=== PATIENT | male | born 1955 | race African-American/Black ===

== ENCOUNTER 2017-10-30 05:46 | Day surgery (SDC) | payer MEDICARE, MEDICAID ==
[~2017-10-30] VITALS: Ht 193 cm; Wt 116.1 kg
[2017-10-30] MEDS ORDERED: GABA-531 PO (05:47)
[2017-10-30] MEDS ORDERED: LISI40TA4 PO (05:47)
[2017-10-30] MEDS ORDERED: METF10002 PO (05:47)
[2017-10-30] MEDS ORDERED: SIMV10TA6 PO (05:47)
[2017-10-30] MEDS ORDERED: SODIUM CHLORIDE 0.9% 1,000 ML IV SCH (06:40)
[2017-10-30] MEDS ORDERED: BETAMETHASONE ACET/BETAMET 30 MG/5 ML VIAL IM ONE (07:18)
[2017-10-30] MEDS ORDERED: LIDOCAINE HCL/PF 1% 10 MG/ML 5ML VIAL ONE ×2 (07:18→07:35)
[2017-10-30] MEDS ORDERED: NORMAL SALINE 0.9% 10 ML SYR ONE (07:18)
[2017-10-30] MEDS ORDERED: BUPIVACAINE HCL/PF 0.5% (5MG/ML) 10ML ONE (07:18)
[2017-10-30] MEDS ORDERED: BACITRACIN 50,000 UNITS/VIAL ONE (07:19)
[2017-10-30] MEDS ORDERED: METF500T4 PO (07:25)
[2017-10-30] MEDS ORDERED: FENTANYL CITRATE/PF 50MCG/ML 2ML VIAL ONE (07:34)
[2017-10-30] MEDS ORDERED: VANCOMYCIN HCL 500 MG/VIAL ONE (07:34)
[2017-10-30] MEDS ORDERED: GLYCOPYRROLATE 0.2 MG/ML 2ML VIAL ONE (07:35)
[2017-10-30] MEDS ORDERED: SUCCINYLCHOLINE CHLORIDE 200MG/10ML VIAL IV ONE (07:35)
[2017-10-30] MEDS ORDERED: MIDAZOLAM HCL 2 MG/2 ML VIAL ONE ×2 (07:35→08:16)
[2017-10-30] MEDS ORDERED: PROPOFOL 200MG/20ML VIAL IV ONE (07:35)
[2017-10-30] MEDS ORDERED: METOCLOPRAMIDE HCL 10MG/2ML VIAL ONE (07:38)
[2017-10-30] MEDS ORDERED: ONDANSETRON HCL 4MG/2ML VIAL ONE (07:38)
[2017-10-30] MEDS ORDERED: ACETAMINOPHEN WITH CODEINE 300/30MG TABLET PO NR (09:30)
[2017-10-30] MEDS ORDERED: HYDROMORPHONE HCL/PF 2MG/ML CPJ IV PRN (09:30)
[2017-10-30] MEDS ORDERED: ONDANSETRON HCL 4MG/2ML VIAL IV PRN (09:30)
[2017-10-30] MEDS ORDERED: SODIUM CHLORIDE 0.9% 1,000 ML IV ONE (09:45)
== END 2017-10-30 11:00 | disposition home or self-care (01) ==
LOC: OR 05:46
PROVIDERS: ATTEND Podiatrist Foot & Ankle Surgery
DX: M20.12 Hallux valgus (acquired), left foot (principal); M21.622 Bunionette of left foot; I10 Essential (primary) hypertension; E78.00 Pure hypercholesterolemia, unspecified; E11.9 Type 2 diabetes mellitus without complications; B19.20 Unspecified viral hepatitis C without hepatic coma; Z79.899 Other long term (current) drug therapy; Z79.84 Long term (current) use of oral hypoglycemic drugs; Z88.0 Allergy status to penicillin
CPT/HCPCS: 28110; 28296; 28308; 82962; 87070; 87075; 87077; 87205; 88304; 88311; A4216; J0330; J0702; J2250; J3010; J3370; J3490; J7030; J2405; J2704; J2765

== ENCOUNTER 2018-04-05 06:10 | Day surgery (SDC) | payer MEDICARE, MEDICAID ==
[~2018-04-05] VITALS: Ht 193 cm; Wt 120.2 kg
[~2018-04-05 06:10] MED LIST: GABA-531 PO; LISI40TA4 PO; METF-414 PO; METF-416 PO; SIMV10TA6 PO
[2018-04-05 07:17] LABS: INR 1.1; PARTIAL THROMBOPLASTIN TIME 27.9 sec (23.4-31.0); PROTHROMBIN TIME 10.6 sec (9.1-11.1)
[2018-04-05] MEDS ORDERED: ASPI-1159 MT (07:33)
[2018-04-05] MEDS ORDERED: METO-539 MT (07:33)
[2018-04-05] MEDS ORDERED: PROPOFOL 10MG/ML 100ML 100 ML IV ONE (07:51)
[2018-04-05 07:53] LABS: HEMATOCRIT 40.5 % (42.0-52.0); MEAN CORPUSCULAR HEMOGLOBIN 29.7 pg (28.0-32.0); MEAN CORPUSCULAR VOLUME 85.6 fL (80.0-94.0); PLATELET 151 x1000/uL (130-400); RED BLOOD CELL COUNT 4.73 mill/uL (4.7-6.1); RED CELL DISTRIBUTION WIDTH 12.9 % (11.6-14.6)
[2018-04-05] MEDS ORDERED: FENTANYL CITRATE/PF 50MCG/ML 2ML VIAL ONE (08:13)
[2018-04-05] MEDS ORDERED: MIDAZOLAM HCL 2 MG/2 ML VIAL ONE ×2 (08:13→09:57)
[2018-04-05 08:20] LABS: CHLORIDE 102 mEq/L (98-107)
[2018-04-05] MEDS ORDERED: LIDOCAINE HCL/PF 1% 10 MG/ML 5ML VIAL ONE (08:51)
[2018-04-05] MEDS ORDERED: LIDOCAINE HCL 1% 20ML VIAL (Pyxis) INJ ONE (10:23)
[2018-04-05] MEDS ORDERED: DOBUTAMINE 250MG PREMIX 250 ML IV ONE (10:24)
[2018-04-05] MEDS ORDERED: ATROPINE SULFATE 1MG/10ML SYR IV PRN (10:30)
[2018-04-05] MEDS ORDERED: ONDANSETRON HCL 4MG/2ML INJ IV PRN (10:30)
[2018-04-05] MEDS ORDERED: HEPARIN SODIUM 1,000 UNIT/1ML VIAL IV ONE (12:20)
== END 2018-04-05 14:00 | disposition home or self-care (01) ==
LOC: OR 06:10
PROVIDERS: ATTEND Internal Medicine Clinical Cardiac Electrophysiology
DX: I47.1 Supraventricular tachycardia (principal); E11.9 Type 2 diabetes mellitus without complications; E78.5 Hyperlipidemia, unspecified; I10 Essential (primary) hypertension; Z88.0 Allergy status to penicillin; Z98.890 Other specified postprocedural states; Z79.899 Other long term (current) drug therapy; Z79.01 Long term (current) use of anticoagulants
CPT/HCPCS: 36415; 80048; 82962; 85027; 85610; 85730; 93005; 93620; 93621; 93623; C1730; C1731; J1250; J1644; J2250; J2704; J3010; J3490; C1893; J7030

== ENCOUNTER 2018-08-11 05:32 | Day surgery (SDC) | payer MEDICARE ==
[~2018-08-11] VITALS: Ht 193 cm; Wt 119.7 kg
[~2018-08-11 05:32] MED LIST changes: +ASPI-1159 MT; -METF-414 PO; +METO25TA6 PO
[2018-08-11 06:32] LABS: BASOPHILS % 0.9 % (0.0-2.0); EOSINOPHILS % 3.3 % (0.0-5.0); HEMATOCRIT. 37.2 % (42.0-52.0); HEMOGLOBIN. 12.3 g/dL (14.0-18.0); LYMPHOCYTES % 32.7 % (20.0-50.0); MEAN CORPUSCULAR HEMOGLOBIN 28.1 pg (28.0-32.0); MEAN PLATELET VOLUME 8.6 fl (7.4-10.4); MONOCYTES % 8.8 % (2.0-8.0); NEUTROPHILS % 54.3 % (40.0-76.0); PLATELET 191 x1000/uL (130-400); RED BLOOD CELL COUNT 4.38 mill/uL (4.7-6.1); RED CELL DISTRIBUTION WIDTH 14.3 % (11.6-14.6)
[2018-08-11] MEDS ORDERED: BUPIVACAINE HCL/PF 0.5% (5MG/ML) 10ML ONE (06:58)
[2018-08-11] MEDS ORDERED: BACITRACIN 50,000 UNITS/VIAL ONE (06:58)
[2018-08-11] MEDS ORDERED: BETAMETHASONE ACET/BETAMET 30 MG/5 ML VIAL IM ONE (06:58)
[2018-08-11] MEDS ORDERED: LIDOCAINE HCL 1% 20ML VIAL (Pyxis) INJ ONE (06:58)
[2018-08-11] MEDS ORDERED: NORMAL SALINE 0.9% 10 ML SYR ONE (07:00)
[2018-08-11] MEDS ORDERED: MIDAZOLAM HCL 2 MG/2 ML VIAL ONE ×2 (07:44→07:56)
[2018-08-11] MEDS ORDERED: PROPOFOL 200MG/20ML VIAL IV ONE (07:44)
[2018-08-11] MEDS ORDERED: SUCCINYLCHOLINE CHLORIDE 200MG/10ML IV ONE (07:44)
[2018-08-11] MEDS ORDERED: FENTANYL CITRATE/PF 50MCG/ML 2ML VIAL ONE (07:44)
[2018-08-11] MEDS ORDERED: GLYCOPYRROLATE 0.2 MG/ML 2ML VIAL ONE (07:44)
[2018-08-11] MEDS ORDERED: LIDOCAINE HCL/PF 1% 10 MG/ML 5ML VIAL ONE (07:44)
[2018-08-11] MEDS ORDERED: VANCOMYCIN HCL 500 MG/VIAL ONE ×2 (07:45→07:46)
[2018-08-11] MEDS ORDERED: ONDANSETRON HCL 4MG/2ML INJ ONE (07:55)
[2018-08-11] MEDS ORDERED: METOCLOPRAMIDE HCL 10MG/2ML VIAL ONE (07:55)
[2018-08-11] MEDS ORDERED: SODIUM CHLORIDE 0.9% 1,000 ML IV ONE (08:33)
[2018-08-11] MEDS ORDERED: METF-414 PO (08:39)
[2018-08-11] MEDS ORDERED: ONDANSETRON HCL 4MG/2ML INJ IV PRN (08:45)
[2018-08-11] MEDS ORDERED: HYDROMORPHONE HCL/PF 2MG/ML CPJ IV PRN (08:45)
== END 2018-08-11 10:50 | disposition home or self-care (01) ==
LOC: OR 05:32
PROVIDERS: ATTEND Podiatrist Foot & Ankle Surgery
DX: M20.11 Hallux valgus (acquired), right foot (principal); E11.622 Type 2 diabetes mellitus with other skin ulcer; T81.89XA Other complications of procedures, not elsewhere classified, initial encounter; I10 Essential (primary) hypertension; E11.9 Type 2 diabetes mellitus without complications; Z87.891 Personal history of nicotine dependence; B19.20 Unspecified viral hepatitis C without hepatic coma
CPT/HCPCS: 28296; 28308; 36415; 82962; 84132; 85025; 88304; 88311; J2250; J2704; J3010; J3370; J3490; J0330; J0702; J2405; J2765

== ENCOUNTER 2018-08-21 17:39 | Inpatient (IN) | payer MEDICARE, MEDICAID ==
[~2018-08-21] VITALS: Ht 193 cm; Wt 113.5 kg
[~2018-08-21 17:39] MED LIST changes: -GABA-531 PO; +METF-414 PO
[2018-08-21] MEDS ORDERED: SODIUM CHLORIDE 0.9% 1,000 ML IV ONE (22:32)
[2018-08-21] MEDS ORDERED: VANCOMYCIN 1 G PREMIX 200 ML IV ONE (22:45)
[2018-08-21] MEDS ORDERED: LEVOFLOXACIN 750MG PREMIX 150 ML IV ONE (22:45)
[2018-08-21 23:04] LABS: CHLORIDE 101 mEq/L (98-107)
[2018-08-21 23:05] LABS: INR 1.1
[2018-08-21 23:07] LABS: EOSINOPHILS % 3.1 % (0.0-5.0); HEMATOCRIT. 36.9 % (42.0-52.0); HEMOGLOBIN. 12.2 g/dL (14.0-18.0); LYMPHOCYTES % 28.1 % (20.0-50.0); MEAN CORPUSCULAR HEMOGLOBIN 27.9 pg (28.0-32.0); MEAN CORPUSCULAR VOLUME 84.3 fL (80.0-94.0); MEAN PLATELET VOLUME 8.9 fl (7.4-10.4); NEUTROPHILS % 59.8 % (40.0-76.0); PLATELET 224 x1000/uL (130-400); RED BLOOD CELL COUNT 4.38 mill/uL (4.7-6.1)
[2018-08-21] MEDS ORDERED: SODIUM CHLORIDE 0.9% 1000ML BAG (SEPSIS BOLUS) IV ONE (23:30)
[2018-08-22 00:32] LABS: CLARITY URINE CLEAR (CLEAR); COLOR URINE YELLOW (YELLOW); KETONES URINE TRACE (NEGATIVE); LEUKOCYTE ESTERASE URINE NEGATIVE (NEGATIVE); NITRITE URINE NEGATIVE (NEGATIVE); OCCULT BLOOD URINE NEGATIVE (NEGATIVE); PROTEIN URINE NEGATIVE (NEGATIVE); SPECIFIC GRAVITY URINE 1.025 (1.005-1.030)
[2018-08-22 10:00] VITALS: BP 141/72
[2018-08-22 10:45] VITALS: BP 134/87
[2018-08-22] MEDS ORDERED: DOCUSATE SODIUM 100MG CAPSULE PO PRN (11:00)
[2018-08-22] MEDS ORDERED: IPRATROPIUM/ALBUTEROL 0.5-3(2.5)MG/3ML NEB INH PRN (11:00)
[2018-08-22] MEDS ORDERED: NA PHOS,M-B/NA PHOS,DI-BA ENEMA 118ML PR PRN (11:00)
[2018-08-22] MEDS ORDERED: CLONIDINE 0.1MG TABLET PO PRN (11:00)
[2018-08-22] MEDS ORDERED: GUAIFENESIN 200MG/10ML SUGAR FREE UDC PO PRN (11:00)
[2018-08-22] MEDS ORDERED: ACETAMINOPHEN 650MG/20.3ML UDC GT PRN (11:00)
[2018-08-22] MEDS ORDERED: ONDANSETRON HCL 4MG/2ML INJ IV PRN (11:00)
[2018-08-22] MEDS ORDERED: MAGNESIUM/ALUMINUM HYDROXIDE/SIMETHICONE 30ML UDC PO PRN (11:00)
[2018-08-22] MEDS ORDERED: HYDROCODONE/ACETAMINOPHEN 5/325MG TABLET PO PRN (11:00)
[2018-08-22] MEDS ORDERED: PIPERACILLIN/TAZ 3.375G PREMIX 50 ML IV SCH (11:00)
[2018-08-22] MEDS ORDERED: ACETAMINOPHEN 325MG TABLET PO PRN (11:00)
[2018-08-22] MEDS ORDERED: ACETAMINOPHEN 650MG SUPP PR PRN (11:00)
[2018-08-22] MEDS ORDERED: HYDROCODONE/ACETAMINOPHEN 10/325MG TABLET PO PRN (11:00)
[2018-08-22] MEDS ORDERED: DIPHENHYDRAMINE 50MG/ML VIAL IV PRN (11:00)
[2018-08-22] MEDS ORDERED: SULF-288 PO (11:03)
[2018-08-22 12:00] VITALS: BP 137/78
[2018-08-22] MEDS: CEFEPIME 1,000 MG in DEXTROSE 5% WATER 50 ML IV SCH ×2 (12:49→23:31)
[2018-08-22] MEDS: SODIUM CHLORIDE 0.45% 1,000 ML IV SCH ×2 (12:50→23:43)
[2018-08-22] MEDS: ENOXAPARIN 30MG/0.3ML SYR SUBCUT SCH ×2 (12:53→20:55)
[2018-08-22 13:15] LABS: HEMATOCRIT. 40.3 % (42.0-52.0); HEMOGLOBIN. 12.9 g/dL (14.0-18.0); MEAN CORPUSCULAR HEMOGLOBIN 27.7 pg (28.0-32.0); MEAN CORPUSCULAR VOLUME 86.4 fL (80.0-94.0); MEAN PLATELET VOLUME 8.9 fl (7.4-10.4); PLATELET 84 x1000/uL (130-400); RED BLOOD CELL COUNT 4.67 mill/uL (4.7-6.1)
[2018-08-22 13:32] LABS: CHLORIDE 105 mEq/L (98-107)
[2018-08-22 13:43] LABS: PLATELET ESTIMATE DECREASED
[2018-08-22] MEDS ORDERED: VANCOMYCIN 1 G PREMIX 200 ML IV SCH (14:00)
[2018-08-22] MEDS ORDERED: VANCOMYCIN 1 G PREMIX 200 ML IV NR (14:00)
[2018-08-22] MEDS: SODIUM CHLORIDE 0.9% INJ 3ML FLUSH IVF SCH ×2 (14:34→22:20)
[2018-08-22 16:00] VITALS: BP 140/73
[2018-08-22] MEDS ORDERED: DEXTROSE 50% WATER 50ML SYRINGE IV PRN ×2 (16:15→16:30)
[2018-08-22] MEDS: BLOOD SUGAR DIAGNOSTIC STRIP TEST SCH ×2 (16:59→20:56)
[2018-08-22] MEDS ORDERED: SULFAMETHOXAZOLE PO SCH (17:00)
[2018-08-22] MEDS ORDERED: [UNRECOGNIZED DRUG - OTHER] PO SCH (17:00)
[2018-08-22] MEDS ORDERED: TRIMETHOPRIM PO SCH (17:00)
[2018-08-22] MEDS ORDERED: BLOOD SUGAR DIAGNOSTIC STRIP TEST SCH (17:20)
[2018-08-22] MEDS: INSULIN LISPRO 100 UNITS/ML SUBCUT SCH ×2 (17:33→21:00)
[2018-08-22] MEDS: ASPIRIN 81MG TABLET PO SCH (17:33)
[2018-08-22] MEDS: METFORMIN HCL 500MG TABLET PO SCH (17:34)
[2018-08-22] MEDS: METOPROLOL TARTRATE 25MG TABLET PO SCH (17:34)
[2018-08-22] MEDS ORDERED: INSULIN LISPRO 100 UNITS/ML SUBCUT SCH (17:50)
[2018-08-22] MEDS: LISINOPRIL 40MG TABLET PO SCH (18:21)
[2018-08-22 20:00] VITALS: BP 123/73
[2018-08-22] MEDS: ATORVASTATIN CALCIUM 10MG TABLET PO SCH (20:54)
[2018-08-23] VITALS: BP 144/74
[2018-08-23 04:00] VITALS: BP 118/58
[2018-08-23] MEDS: BLOOD SUGAR DIAGNOSTIC STRIP TEST SCH ×4 (05:33→20:36)
[2018-08-23] MEDS: SODIUM CHLORIDE 0.9% INJ 3ML FLUSH IVF SCH ×3 (05:33→22:27)
[2018-08-23 06:47] LABS: BASOPHILS % 0.4 % (0.0-2.0); EOSINOPHILS % 5.6 % (0.0-5.0); HEMATOCRIT. 36.4 % (42.0-52.0); HEMOGLOBIN. 12.3 g/dL (14.0-18.0); LYMPHOCYTES % 24.7 % (20.0-50.0); MEAN CORPUSCULAR HEMOGLOBIN 27.9 pg (28.0-32.0); MEAN CORPUSCULAR VOLUME 82.5 fL (80.0-94.0); MEAN PLATELET VOLUME 8.8 fl (7.4-10.4); MONOCYTES % 9.5 % (2.0-8.0); NEUTROPHILS % 59.8 % (40.0-76.0); PLATELET 176 x1000/uL (130-400); RED BLOOD CELL COUNT 4.42 mill/uL (4.7-6.1); RED CELL DISTRIBUTION WIDTH 13.5 % (11.6-14.6)
[2018-08-23 06:49] LABS: CLARITY URINE CLEAR (CLEAR); COLOR URINE YELLOW (YELLOW); KETONES URINE NEGATIVE (NEGATIVE); LEUKOCYTE ESTERASE URINE NEGATIVE (NEGATIVE); NITRITE URINE NEGATIVE (NEGATIVE); OCCULT BLOOD URINE NEGATIVE (NEGATIVE); PROTEIN URINE NEGATIVE (NEGATIVE); SPECIFIC GRAVITY URINE 1.015 (1.005-1.030); UROBILINOGEN URINE 0.2 E.U./dL (0.2-1.0)
[2018-08-23 07:23] LABS: CHLORIDE 103 mEq/L (98-107)
[2018-08-23 07:39] LABS: HDL CHOLESTEROL 29 mg/dL (40-59); LDL CHOLESTEROL 62 mg/dL (5-100)
[2018-08-23 08:00] VITALS: BP 117/74
[2018-08-23] MEDS ORDERED: VANCOMYCIN 750 MG PREMIX 150 ML IV SCH (08:00)
[2018-08-23 08:11] LABS: *AMPHETAMINES SCREEN URINE NEGATIVE (NEGATIVE); *BARBITURATES SCREEN URINE NEGATIVE (NEGATIVE); *BENZODIAZEPINES SCREEN URINE NEGATIVE (NEGATIVE)
[2018-08-23 08:12] LABS: *COCAINE SCREEN URINE NEGATIVE (NEGATIVE); CANNABINOID URINE SCREEN NEGATIVE (NEGATIVE); METHADONE URINE SCREEN NEGATIVE (NEGATIVE); OPIATES URINE SCREEN NEGATIVE (NEGATIVE); PHENCYCLIDINE URINE SCREEN NEGATIVE (NEGATIVE)
[2018-08-23] MEDS: METFORMIN HCL 500MG TABLET PO SCH ×2 (08:40→17:04)
[2018-08-23] MEDS: ASPIRIN 81MG TABLET PO SCH (08:40)
[2018-08-23] MEDS: METOPROLOL TARTRATE 25MG TABLET PO SCH ×2 (08:41→20:45)
[2018-08-23] MEDS: ENOXAPARIN 30MG/0.3ML SYR SUBCUT SCH ×2 (08:41→20:36)
[2018-08-23] MEDS: INSULIN LISPRO 100 UNITS/ML SUBCUT SCH ×4 (08:42→20:46)
[2018-08-23 12:00] VITALS: BP 151/82
[2018-08-23] MEDS: CEFEPIME 1,000 MG in DEXTROSE 5% WATER 50 ML IV SCH (12:26)
[2018-08-23 16:00] VITALS: BP 107/67
[2018-08-23] MEDS: SODIUM CHLORIDE 0.45% 1,000 ML IV SCH (17:07)
[2018-08-23] MEDS: LISINOPRIL 40MG TABLET PO SCH (17:23)
[2018-08-23 20:00] VITALS: BP 122/76
[2018-08-23] MEDS: ATORVASTATIN CALCIUM 10MG TABLET PO SCH (20:36)
[2018-08-23] MEDS: VANCOMYCIN 750 MG PREMIX 150 ML IV SCH (20:36)
[2018-08-24] VITALS: BP 130/72
[2018-08-24] MEDS: CEFEPIME 1,000 MG in DEXTROSE 5% WATER 50 ML IV SCH ×2 (00:38→12:56)
[2018-08-24] MEDS: SODIUM CHLORIDE 0.45% 1,000 ML IV SCH (03:33)
[2018-08-24 04:00] VITALS: BP 124/72
[2018-08-24] MEDS: SODIUM CHLORIDE 0.9% INJ 3ML FLUSH IVF SCH (05:36)
[2018-08-24] MEDS: INSULIN LISPRO 100 UNITS/ML SUBCUT SCH ×2 (07:50→12:50)
[2018-08-24 08:00] VITALS: BP 115/69
[2018-08-24] MEDS: BLOOD SUGAR DIAGNOSTIC STRIP TEST SCH ×2 (08:04→12:57)
[2018-08-24] MEDS: VANCOMYCIN 750 MG PREMIX 150 ML IV SCH (08:08)
[2018-08-24] MEDS: ENOXAPARIN 30MG/0.3ML SYR SUBCUT SCH (08:08)
[2018-08-24] MEDS: METFORMIN HCL 500MG TABLET PO SCH (08:09)
[2018-08-24] MEDS: ASPIRIN 81MG TABLET PO SCH (08:09)
[2018-08-24] MEDS: METOPROLOL TARTRATE 25MG TABLET PO SCH (08:09)
[2018-08-24 10:12] VITALS: BP 115/69
[2018-08-24 12:00] VITALS: BP 121/75
== END 2018-08-24 15:25 | disposition home or self-care (01) | DRG 862 ==
LOC: ER 17:39 → EDBEDREQTM 23:49 → EDBEDREQ 23:49 → ENRESERV 08-22 07:20 → 6EST 08-22 10:14
PROVIDERS: ADMIT Family Medicine; ATTEND Family Medicine
DX: T81.40XA Infection following a procedure, unspecified, initial encounter (principal); A41.9 Sepsis, unspecified organism; L03.115 Cellulitis of right lower limb; E11.9 Type 2 diabetes mellitus without complications; I10 Essential (primary) hypertension; E66.9 Obesity, unspecified; Z68.30 Body mass index [BMI] 30.0-30.9, adult; Z88.0 Allergy status to penicillin; E78.5 Hyperlipidemia, unspecified; E78.00 Pure hypercholesterolemia, unspecified; Z79.82 Long term (current) use of aspirin; Z79.84 Long term (current) use of oral hypoglycemic drugs; Z79.899 Other long term (current) drug therapy; Y83.8 Other surgical procedures as the cause of abnormal reaction of the patient, or of later complication, without mention of misadventure at the time of the procedure; Y92.89 Other specified places as the place of occurrence of the external cause
CPT/HCPCS: 36415; 71045; 73630; 80048; 80061; 80305; 82962; 83036; 83605; 83880; 84484; 87070; 87075; 93005; 96365; 96366; 99291; J0692; J1650; J1815; J1956; J3370; J7030; J7060

== ENCOUNTER 2018-09-18 04:12 | Inpatient (IN) | payer MEDICARE, MEDICAID ==
[~2018-09-18] VITALS: Ht 375.9 cm; Wt 112.0 kg
[~2018-09-18 04:12] MED LIST changes: -METF-414 PO; +SULF-288 PO
[2018-09-18] MEDS ORDERED: KETOROLAC 30MG/ML VIAL IV STA (06:49)
[2018-09-18 07:22] LABS: BASOPHILS % 0.8 % (0.0-2.0); EOSINOPHILS % 4.1 % (0.0-5.0); HEMATOCRIT. 36.2 % (42.0-52.0); HEMOGLOBIN. 12.3 g/dL (14.0-18.0); LYMPHOCYTES % 25.6 % (20.0-50.0); MEAN CORPUSCULAR HEMOGLOBIN 28.1 pg (28.0-32.0); MEAN CORPUSCULAR VOLUME 82.8 fL (80.0-94.0); MONOCYTES % 8.9 % (2.0-8.0); NEUTROPHILS % 60.6 % (40.0-76.0); PLATELET 252 x1000/uL (130-400); RED BLOOD CELL COUNT 4.37 mill/uL (4.7-6.1); RED CELL DISTRIBUTION WIDTH 14.6 % (11.6-14.6)
[2018-09-18] MEDS ORDERED: VANCOMYCIN 1 G PREMIX 200 ML IV SCH (07:30)
[2018-09-18] MEDS ORDERED: CEFTRIAXONE 1 G PREMIX 50 ML IV ONE (07:45)
[2018-09-18 07:59] LABS: CHLORIDE 101 mEq/L (98-107)
[2018-09-18] MEDS ORDERED: IBUPROFEN 600MG TABLET PO PRN (08:00)
[2018-09-18] MEDS ORDERED: ACETAMINOPHEN 325MG TABLET PO PRN (14:45)
[2018-09-18] MEDS ORDERED: CLONIDINE 0.1MG TABLET PO PRN (14:45)
[2018-09-18] MEDS ORDERED: GUAIFENESIN 200MG/10ML SUGAR FREE UDC PO PRN (14:45)
[2018-09-18] MEDS ORDERED: HYDROCODONE/ACETAMINOPHEN 5/325MG TABLET PO PRN (14:45)
[2018-09-18] MEDS ORDERED: ONDANSETRON HCL 4MG/2ML INJ IV PRN (14:45)
[2018-09-18] MEDS ORDERED: DOCUSATE SODIUM 100MG CAPSULE PO PRN (14:45)
[2018-09-18] MEDS ORDERED: HYDROMORPHONE HCL/PF 2MG/ML CPJ IV PRN (17:00)
[2018-09-18] MEDS ORDERED: LEVOFLOXACIN 500MG PREMIX 100 ML IV SCH (21:15)
[2018-09-18] MEDS ORDERED: SODIUM POLYSTYRENE SULFONATE 15 G/60 ML BOT PO NR (21:45)
[2018-09-18 22:30] VITALS: BP 140/89
[2018-09-19] VITALS: BP 140/89
[2018-09-19] MEDS ORDERED: CLINDAMYCIN 600 MG in DEXTROSE 5% WATER 50 ML IV SCH ×2
[2018-09-19 04:00] VITALS: BP 128/76
[2018-09-19 07:50] LABS: CHLORIDE 101 mEq/L (98-107)
[2018-09-19 08:00] VITALS: BP 127/82
[2018-09-19] MEDS: ENOXAPARIN 30MG/0.3ML SYR SUBCUT SCH ×2 (09:49→20:57)
[2018-09-19] MEDS: CLINDAMYCIN 600MG PREMIX 50 ML IV SCH ×2 (09:49)
[2018-09-19 09:52] LABS: BASOPHILS % 0.5 % (0.0-2.0); HEMATOCRIT. 35.4 % (42.0-52.0); HEMOGLOBIN. 12.1 g/dL (14.0-18.0); LYMPHOCYTES % 26.7 % (20.0-50.0); MEAN CORPUSCULAR HEMOGLOBIN 28.3 pg (28.0-32.0); MEAN CORPUSCULAR VOLUME 82.6 fL (80.0-94.0); MEAN PLATELET VOLUME 8.4 fl (7.4-10.4); MONOCYTES % 10.3 % (2.0-8.0); NEUTROPHILS % 56.5 % (40.0-76.0); PLATELET 192 x1000/uL (130-400); RED BLOOD CELL COUNT 4.29 mill/uL (4.7-6.1); RED CELL DISTRIBUTION WIDTH 14.6 % (11.6-14.6)
[2018-09-19 12:00] VITALS: BP 130/77
[2018-09-19 16:00] VITALS: BP 127/84
[2018-09-19 20:00] VITALS: BP 159/85
[2018-09-19] MEDS ORDERED: DEXTROSE 50% WATER 50ML SYRINGE IV PRN (20:00)
[2018-09-19] MEDS: BLOOD SUGAR DIAGNOSTIC STRIP TEST SCH (20:46)
[2018-09-19] MEDS ORDERED: LEVOFLOXACIN 500MG PREMIX 100 ML IV SCH (21:00)
[2018-09-19] MEDS: INSULIN LISPRO 100 UNITS/ML SUBCUT SCH (21:01)
[2018-09-19] MEDS: LEVOFLOXACIN 500MG PREMIX 100 ML IV SCH (22:19)
[2018-09-20] VITALS: BP 144/85
[2018-09-20 04:00] VITALS: BP 132/84
[2018-09-20] MEDS: BLOOD SUGAR DIAGNOSTIC STRIP TEST SCH ×4 (06:46→20:23)
[2018-09-20 08:00] VITALS: BP 130/90
[2018-09-20] MEDS: CLINDAMYCIN 600MG PREMIX 50 ML IV SCH ×2 (08:14)
[2018-09-20] MEDS: ENOXAPARIN 30MG/0.3ML SYR SUBCUT SCH ×2 (08:15→20:20)
[2018-09-20] MEDS: INSULIN LISPRO 100 UNITS/ML SUBCUT SCH ×4 (08:22→20:24)
[2018-09-20 12:00] VITALS: BP 142/91
[2018-09-20] MEDS ORDERED: VANCOMYCIN 2,000 MG in DEXT 5% WATER 500 ML IV NR (13:00)
[2018-09-20 16:30] VITALS: BP 142/91
[2018-09-20 20:00] VITALS: BP 149/78
[2018-09-20] MEDS: LEVOFLOXACIN 500MG PREMIX 100 ML IV SCH (21:44)
[2018-09-20] MEDS: VANCOMYCIN 1500MG in DEXTROSE 5% WATER 250ML IV SCH (23:47)
[2018-09-21] VITALS: BP 132/62
[2018-09-21 04:00] VITALS: BP 142/82
[2018-09-21] MEDS: BLOOD SUGAR DIAGNOSTIC STRIP TEST SCH ×4 (07:24→21:25)
[2018-09-21 08:00] VITALS: BP 125/84
[2018-09-21] MEDS: ENOXAPARIN 30MG/0.3ML SYR SUBCUT SCH ×2 (08:08→21:25)
[2018-09-21] MEDS: INSULIN LISPRO 100 UNITS/ML SUBCUT SCH ×4 (08:16→21:37)
[2018-09-21 12:00] VITALS: BP 128/81
[2018-09-21] MEDS: VANCOMYCIN 1500MG in DEXTROSE 5% WATER 250ML IV SCH ×2 (12:15→23:38)
[2018-09-21 16:00] VITALS: BP 113/67
[2018-09-21 20:00] VITALS: BP 138/79
[2018-09-22] VITALS: BP 133/80
[2018-09-22 04:00] VITALS: BP 128/82
[2018-09-22] MEDS: BLOOD SUGAR DIAGNOSTIC STRIP TEST SCH (06:47)
[2018-09-22 08:00] VITALS: BP 133/75
[2018-09-22] MEDS: ENOXAPARIN 30MG/0.3ML SYR SUBCUT SCH (08:25)
[2018-09-22] MEDS: INSULIN LISPRO 100 UNITS/ML SUBCUT SCH (08:30)
[2018-09-22 11:24] VITALS: BP 133/75
== END 2018-09-22 12:05 | disposition home health service (06) | DRG 863 ==
LOC: ER 04:12 → 6EST 07:58 → SUPCPDRO 14:40 → ENRESERV 19:15
PROVIDERS: ADMIT Hospitalist; ATTEND Hospitalist
PROC: 05H633Z Insertion of Infusion Device into Left Subclavian Vein, Percutaneous Approach (ICD-10-PCS; principal; 2018-09-20)
PROC: B547ZZA Ultrasonography of Left Subclavian Vein, Guidance (ICD-10-PCS; 2018-09-20)
PROC: B5171ZA Fluoroscopy of Left Subclavian Vein using Low Osmolar Contrast, Guidance (ICD-10-PCS; 2018-09-20)
DX: T81.40XA Infection following a procedure, unspecified, initial encounter (principal); M86.8X7 Other osteomyelitis, ankle and foot; L08.9 Local infection of the skin and subcutaneous tissue, unspecified; E11.69 Type 2 diabetes mellitus with other specified complication; E11.40 Type 2 diabetes mellitus with diabetic neuropathy, unspecified; M21.619 Bunion of unspecified foot; B95.62 Methicillin resistant Staphylococcus aureus infection as the cause of diseases classified elsewhere; E78.00 Pure hypercholesterolemia, unspecified; E78.5 Hyperlipidemia, unspecified; E87.5 Hyperkalemia; I10 Essential (primary) hypertension; Z88.0 Allergy status to penicillin; Z79.82 Long term (current) use of aspirin; Z79.899 Other long term (current) drug therapy
CPT/HCPCS: 36415; 36569; 36573; 73721; 82962; 87070; 87077; 93971; 96361; 96365; 96366; 96367; 99285; A6261; C1725; J0696; J1650; J1815; J1885; J1956; J3370; J3490; J7040; J7060

== ENCOUNTER 2018-10-06 03:13 | Inpatient (IN) | payer MEDICARE, MEDICAID ==
[~2018-10-06] VITALS: Ht 182.9 cm; Wt 110.7 kg
[2018-10-06] VITALS (55 sets, daily range): BP systolic 53–171; BP diastolic 23–113
[2018-10-06] MEDS ORDERED: IPRATROPIUM BROMIDE (0.02%) 0.5MG/2.5ML NEB HHN STA (03:27)
[2018-10-06] MEDS ORDERED: SODIUM CHLORIDE 0.9% 1,000 ML IV ONE (03:27)
[2018-10-06] MEDS ORDERED: METHYLPREDNISOLONE SOD SUCC 125 MG/2 ML VIAL IV STA (03:27)
[2018-10-06] MEDS ORDERED: ONDANSETRON HCL 4MG/2ML INJ IV STA (03:27)
[2018-10-06] MEDS ORDERED: MAGNESIUM 2 G PREMIX 50 ML IV ONE (03:30)
[2018-10-06] MEDS ORDERED: PROPOFOL 10MG/ML 100ML 100 ML IV ONE (03:30)
[2018-10-06] MEDS ORDERED: SUCCINYLCHOLINE CHLORIDE 200MG/10ML IV ONE ×2 (03:30)
[2018-10-06] MEDS ORDERED: ALBUTEROL (0.083%) 2.5MG/3ML NEB HHN SCH (03:30)
[2018-10-06] MEDS ORDERED: ETOMIDATE 2MG/ML 10ML VIAL IV ONE (03:30)
[2018-10-06 04:27] LABS: CHLORIDE 108 mEq/L (98-107)
[2018-10-06 04:28] LABS: INR 1.1; PROTHROMBIN TIME 10.8 sec (9.6-11.0)
[2018-10-06 04:29] LABS: BASOPHILS % 0.9 % (0.0-2.0); EOSINOPHILS % 2.8 % (0.0-5.0); HEMATOCRIT. 32.8 % (42.0-52.0); LYMPHOCYTES % 19.8 % (20.0-50.0); MEAN CORPUSCULAR HEMOGLOBIN 27.8 pg (28.0-32.0); MEAN CORPUSCULAR VOLUME 83.3 fL (80.0-94.0); MEAN PLATELET VOLUME 8.8 fl (7.4-10.4); MONOCYTES % 5.9 % (2.0-8.0); NEUTROPHILS % 70.6 % (40.0-76.0); PLATELET 209 x1000/uL (130-400); RED BLOOD CELL COUNT 3.94 mill/uL (4.7-6.1); RED CELL DISTRIBUTION WIDTH 14.9 % (11.6-14.6)
[2018-10-06 04:34] LABS: BG BASE EXCESS -3.1 mmol/L (-2.0-2.0); BG CARBOXYHEMOGLOBIN 0.9 % (0.5-1.5); BG DEOXYHEMOGLOBIN 1.1 % (0.0-5.0); BG FRACTION INSPIRED OXYGEN 100; BG HCO3 ACT 24.5 mmol/L (22.0-26.0); BG METHEMOGLOBIN 0.3 % (0.0-1.5); BG OXYGEN SATURATION 98.9 % (92.0-98.5); BG OXYHEMOGLOBIN 97.7 % (94.0-97.0); BG PCO2 54.4 mmHg (35.0-45.0); BG PH 7.272 (7.350-7.450); BG PO2 168.8 mmHg (75.0-100.0); BG SAMPLE SITE LEFT RADIAL; BG TIDAL VOLUME(mL) 500 mL; BG TOTAL HEMOGLOBIN 14.7 g/dL (12.0-18.0); BG VENT MODE VENT - A/C; BG VENT RATE 16 set
[2018-10-06 04:35] LABS: CLARITY URINE CLOUDY (CLEAR); COLOR URINE YELLOW (YELLOW); KETONES URINE NEGATIVE (NEGATIVE); LEUKOCYTE ESTERASE URINE NEGATIVE (NEGATIVE); NITRITE URINE NEGATIVE (NEGATIVE); OCCULT BLOOD URINE 1+ (NEGATIVE); PROTEIN URINE 2+ (NEGATIVE); SPECIFIC GRAVITY URINE 1.015 (1.005-1.030); UROBILINOGEN URINE 0.2 E.U./dL (0.2-1.0)
[2018-10-06] MEDS ORDERED: MIDAZOLAM HCL 50 MG in DEXTROSE 5% WATER 40 ML IV ONE (05:45)
[2018-10-06] MEDS ORDERED: ACETAMINOPHEN 650MG SUPP PR PRN (07:15)
[2018-10-06] MEDS ORDERED: ONDANSETRON HCL 4MG/2ML INJ IV PRN (07:15)
[2018-10-06] MEDS ORDERED: LEVOFLOXACIN 500MG PREMIX 100 ML IV SCH (08:00)
[2018-10-06] MEDS ORDERED: IPRATROPIUM/ALBUTEROL 0.5-3(2.5)MG/3ML NEB HHN PRN (08:15)
[2018-10-06] MEDS ORDERED: FENTANYL CITRATE/PF 500 MCG in SODIUM CHLORIDE 0.9% 40 ML IV PRN (08:15)
[2018-10-06] MEDS: ENOXAPARIN 40MG/0.4ML SYR SUBCUT SCH ×3 (08:30→08:53)
[2018-10-06] MEDS: PANTOPRAZOLE SODIUM 40 MG/VIAL IV SCH ×2 (08:30→08:53)
[2018-10-06] MEDS: FUROSEMIDE 40MG/4ML VIAL IV SCH (08:52)
[2018-10-06] MEDS: IPRATROPIUM/ALBUTEROL 0.5-3(2.5)MG/3ML NEB HHN SCH ×4 (11:32→23:54)
[2018-10-06] MEDS ORDERED: DEXTROSE 50% WATER 50ML SYRINGE IV PRN (12:30)
[2018-10-06] MEDS: INSULIN LISPRO 100 UNITS/ML SUBCUT SCH ×2 (12:30→17:51)
[2018-10-06] MEDS ORDERED: VANCOMYCIN 2,000 MG in DEXT 5% WATER 500 ML IV NR (13:00)
[2018-10-06 13:20] LABS: BG BASE EXCESS 0.3 mmol/L (-2.0-2.0); BG CARBOXYHEMOGLOBIN 0.2 % (0.5-1.5); BG DEOXYHEMOGLOBIN 1.6 % (0.0-5.0); BG FRACTION INSPIRED OXYGEN 80; BG HCO3 ACT 25.4 mmol/L (22.0-26.0); BG METHEMOGLOBIN 0.3 % (0.0-1.5); BG OXYGEN SATURATION 98.4 % (92.0-98.5); BG OXYHEMOGLOBIN 97.9 % (94.0-97.0); BG PCO2 42.9 mmHg (35.0-45.0); BG PO2 150.4 mmHg (75.0-100.0); BG SAMPLE SITE RIGHT RADIAL; BG TIDAL VOLUME(mL) 500 mL; BG TOTAL HEMOGLOBIN 10.7 g/dL (12.0-18.0); BG VENT MODE VENT - A/C; BG VENT RATE 18 set
[2018-10-06] MEDS: BLOOD SUGAR DIAGNOSTIC STRIP TEST SCH ×3 (13:26→23:43)
[2018-10-06] MEDS: PROPOFOL 10MG/ML 100ML 100 ML IV PRN ×4 (13:34→22:06)
[2018-10-06] MEDS ORDERED: NOREPINEPHRINE 4MG/250ML PMX 250 ML IV ONE (15:30)
[2018-10-06 15:42] LABS: *AMPHETAMINES SCREEN URINE NEGATIVE (NEGATIVE); *BARBITURATES SCREEN URINE NEGATIVE (NEGATIVE); *BENZODIAZEPINES SCREEN URINE PRESUMTIVE POSITIVE (NEGATIVE); *COCAINE SCREEN URINE NEGATIVE (NEGATIVE); METHADONE URINE SCREEN NEGATIVE (NEGATIVE); OPIATES URINE SCREEN NEGATIVE (NEGATIVE); PHENCYCLIDINE URINE SCREEN NEGATIVE (NEGATIVE)
[2018-10-06 15:43] LABS: CANNABINOID URINE SCREEN NEGATIVE (NEGATIVE)
[2018-10-06] MEDS ORDERED: NOREPINEPHRINE 4 MG in DEXTROSE 5% WATER 250 ML IV PRN (15:45)
[2018-10-06 16:53] LABS: CREATINE KINASE MB FRACTION 12.4 ng/mL (0.5-3.6)
[2018-10-07] VITALS (83 sets, daily range): BP systolic 83–167; BP diastolic 48–95
[2018-10-07] MEDS: INSULIN LISPRO 100 UNITS/ML SUBCUT SCH ×4 (00:15→18:14)
[2018-10-07] MEDS: PROPOFOL 10MG/ML 100ML 100 ML IV PRN ×8 (01:09→20:55)
[2018-10-07 01:23] LABS: CREATINE KINASE MB FRACTION 10.7 ng/mL (0.5-3.6)
[2018-10-07] MEDS: FENTANYL CITRATE/PF 500 MCG in SODIUM CHLORIDE 0.9% 40 ML IV PRN ×2 (02:18→15:39)
[2018-10-07] MEDS: IPRATROPIUM/ALBUTEROL 0.5-3(2.5)MG/3ML NEB HHN SCH ×6 (04:12→23:41)
[2018-10-07 05:46] LABS: CHLORIDE 109 mEq/L (98-107)
[2018-10-07 05:53] LABS: BASOPHILS % 0.2 % (0.0-2.0); EOSINOPHILS % 0.3 % (0.0-5.0); HEMATOCRIT. 28.1 % (42.0-52.0); HEMOGLOBIN. 9.8 g/dL (14.0-18.0); MEAN CORPUSCULAR HEMOGLOBIN 28.7 pg (28.0-32.0); MEAN CORPUSCULAR VOLUME 81.9 fL (80.0-94.0); MONOCYTES % 7.3 % (2.0-8.0); NEUTROPHILS % 79.2 % (40.0-76.0); PLATELET 180 x1000/uL (130-400); RED BLOOD CELL COUNT 3.43 mill/uL (4.7-6.1); RED CELL DISTRIBUTION WIDTH 14.8 % (11.6-14.6)
[2018-10-07 05:59] LABS: LDL CHOLESTEROL 72 mg/dL (5-100)
[2018-10-07 06:00] LABS: HDL CHOLESTEROL 32 mg/dL (40-59)
[2018-10-07] MEDS: BLOOD SUGAR DIAGNOSTIC STRIP TEST SCH ×3 (06:38→17:48)
[2018-10-07 07:15] LABS: BG BASE EXCESS -0.2 mmol/L (-2.0-2.0); BG CARBOXYHEMOGLOBIN 0.3 % (0.5-1.5); BG DEOXYHEMOGLOBIN 5.5 % (0.0-5.0); BG HCO3 ACT 24.9 mmol/L (22.0-26.0); BG METHEMOGLOBIN 0.2 % (0.0-1.5); BG OXYGEN SATURATION 94.5 % (92.0-98.5); BG PCO2 42.6 mmHg (35.0-45.0); BG PH 7.385 (7.350-7.450); BG PO2 77.6 mmHg (75.0-100.0); BG SAMPLE SITE RIGHT RADIAL; BG TIDAL VOLUME(mL) 500 mL; BG VENT MODE VENT - A/C; BG VENT RATE 18 set
[2018-10-07] MEDS ORDERED: LEVOFLOXACIN 250MG PREMIX 50 ML IV SCH ×2 (09:00→11:00)
[2018-10-07] MEDS: FUROSEMIDE 40MG/4ML VIAL IV SCH (09:02)
[2018-10-07] MEDS: PANTOPRAZOLE SODIUM 40 MG/VIAL IV SCH (09:02)
[2018-10-07] MEDS: ENOXAPARIN 40MG/0.4ML SYR SUBCUT SCH (09:03)
[2018-10-07] MEDS ORDERED: LIDOCAINE HCL/PF 1% 2ML VIAL ONE (11:09)
[2018-10-07] MEDS ORDERED: LEVOFLOXACIN 750MG PREMIX 150 ML IV SCH (12:00)
[2018-10-07] MEDS ORDERED: POTASSIUM CHLORIDE INJ 40 MEQ in DEXT 5% WATER 500 ML IV SCH (12:00)
[2018-10-07] MEDS: VANCOMYCIN 1,750 MG in DEXT 5% WATER 500 ML IV SCH (12:50)
[2018-10-07] MEDS ORDERED: VANCOMYCIN 1500MG in DEXTROSE 5% WATER 250ML IV SCH (15:00)
[2018-10-08] VITALS (46 sets, daily range): BP systolic 91–203; BP diastolic 47–140
[2018-10-08] MEDS: PROPOFOL 10MG/ML 100ML 100 ML IV PRN ×4 (00:13→09:06)
[2018-10-08] MEDS: INSULIN LISPRO 100 UNITS/ML SUBCUT SCH ×4 (00:17→18:28)
[2018-10-08] MEDS: BLOOD SUGAR DIAGNOSTIC STRIP TEST SCH ×4 (00:17→18:24)
[2018-10-08] MEDS: FENTANYL CITRATE/PF 500 MCG in SODIUM CHLORIDE 0.9% 40 ML IV PRN ×2 (01:08→09:05)
[2018-10-08] MEDS: IPRATROPIUM/ALBUTEROL 0.5-3(2.5)MG/3ML NEB HHN SCH ×6 (03:52→23:42)
[2018-10-08 04:48] LABS: BASOPHILS % 0.7 % (0.0-2.0); HEMATOCRIT. 31.2 % (42.0-52.0); HEMOGLOBIN. 10.4 g/dL (14.0-18.0); LYMPHOCYTES % 19.6 % (20.0-50.0); MEAN CORPUSCULAR HEMOGLOBIN 27.6 pg (28.0-32.0); MEAN CORPUSCULAR VOLUME 82.8 fL (80.0-94.0); MEAN PLATELET VOLUME 8.6 fl (7.4-10.4); MONOCYTES % 10.3 % (2.0-8.0); NEUTROPHILS % 67.4 % (40.0-76.0); PLATELET 156 x1000/uL (130-400); RED BLOOD CELL COUNT 3.76 mill/uL (4.7-6.1); RED CELL DISTRIBUTION WIDTH 15.6 % (11.6-14.6)
[2018-10-08 04:54] LABS: CHLORIDE 108 mEq/L (98-107)
[2018-10-08] MEDS: VANCOMYCIN 1,750 MG in DEXT 5% WATER 500 ML IV SCH (05:59)
[2018-10-08 08:09] LABS: BG BASE EXCESS -1.2 mmol/L (-2.0-2.0); BG CARBOXYHEMOGLOBIN 0.3 % (0.5-1.5); BG DEOXYHEMOGLOBIN 3.4 % (0.0-5.0); BG FRACTION INSPIRED OXYGEN 40; BG METHEMOGLOBIN 0.1 % (0.0-1.5); BG OXYGEN SATURATION 96.6 % (92.0-98.5); BG OXYHEMOGLOBIN 96.2 % (94.0-97.0); BG PCO2 36.7 mmHg (35.0-45.0); BG PH 7.415 (7.350-7.450); BG PO2 92.5 mmHg (75.0-100.0); BG SAMPLE SITE RIGHT RADIAL; BG TIDAL VOLUME(mL) 550 mL; BG VENT MODE VENT - A/C; BG VENT RATE 16 set
[2018-10-08] MEDS: FUROSEMIDE 40MG/4ML VIAL IV SCH (08:59)
[2018-10-08] MEDS: PANTOPRAZOLE SODIUM 40 MG/VIAL IV SCH (08:59)
[2018-10-08] MEDS: ENOXAPARIN 30MG/0.3ML SYR SUBCUT SCH ×2 (08:59→20:43)
[2018-10-08 11:06] LABS: BG BASE EXCESS 2.1 mmol/L (-2.0-2.0); BG CARBOXYHEMOGLOBIN 0.1 % (0.5-1.5); BG DEOXYHEMOGLOBIN 3.1 % (0.0-5.0); BG FRACTION INSPIRED OXYGEN 40; BG HCO3 ACT 25.1 mmol/L (22.0-26.0); BG METHEMOGLOBIN 0.3 % (0.0-1.5); BG OXYGEN SATURATION 96.9 % (92.0-98.5); BG OXYHEMOGLOBIN 96.5 % (94.0-97.0); BG PCO2 33.9 mmHg (35.0-45.0); BG PH 7.488 (7.350-7.450); BG PO2 88.6 mmHg (75.0-100.0); BG PRESSURE SUPPORT 8; BG SAMPLE SITE RIGHT RADIAL; BG TOTAL HEMOGLOBIN 12.4 g/dL (12.0-18.0); BG VENT MODE VENT - CPAP
[2018-10-08] MEDS ORDERED: RACEPINEPHRINE 2.25% 0.5ML NEB VIAL HHN SCH (11:15)
[2018-10-08] MEDS ORDERED: RACEPINEPHRINE 2.25% 0.5ML NEB VIAL HHN PRN (11:15)
[2018-10-08] MEDS ORDERED: ALPR2TAB2 PO (12:24)
[2018-10-08] MEDS: LEVOFLOXACIN 750MG PREMIX 150 ML IV SCH (12:29)
[2018-10-08] MEDS: MUPIROCIN 2% OINT 22GM TOP SCH (12:29)
[2018-10-08] MEDS: ACETAMINOPHEN 325MG TABLET PO PRN ×2 (12:30→20:44)
[2018-10-08] MEDS: LORAZEPAM 2MG/ML CPJ IV PRN (20:44)
[2018-10-09] VITALS (47 sets, daily range): BP systolic 132–180; BP diastolic 63–110
[2018-10-09] MEDS: INSULIN LISPRO 100 UNITS/ML SUBCUT SCH ×4 (00:29→18:04)
[2018-10-09] MEDS: VANCOMYCIN 1,750 MG in DEXT 5% WATER 500 ML IV SCH ×2 (00:29→18:02)
[2018-10-09] MEDS: BLOOD SUGAR DIAGNOSTIC STRIP TEST SCH ×4 (00:30→17:58)
[2018-10-09] MEDS: IPRATROPIUM/ALBUTEROL 0.5-3(2.5)MG/3ML NEB HHN SCH ×5 (03:59→20:17)
[2018-10-09 05:38] LABS: BASOPHILS % 0.4 % (0.0-2.0); EOSINOPHILS % 1.5 % (0.0-5.0); HEMATOCRIT. 32.9 % (42.0-52.0); LYMPHOCYTES % 15.2 % (20.0-50.0); MEAN CORPUSCULAR HEMOGLOBIN 27.8 pg (28.0-32.0); MEAN CORPUSCULAR VOLUME 82.6 fL (80.0-94.0); MEAN PLATELET VOLUME 8.8 fl (7.4-10.4); NEUTROPHILS % 71.9 % (40.0-76.0); PLATELET 170 x1000/uL (130-400); RED BLOOD CELL COUNT 3.98 mill/uL (4.7-6.1); RED CELL DISTRIBUTION WIDTH 15.1 % (11.6-14.6)
[2018-10-09 07:04] LABS: CHLORIDE 104 mEq/L (98-107)
[2018-10-09] MEDS: PANTOPRAZOLE SODIUM 40 MG/VIAL IV SCH (09:26)
[2018-10-09] MEDS: FUROSEMIDE 40MG/4ML VIAL IV SCH (09:26)
[2018-10-09] MEDS: MUPIROCIN 2% OINT 22GM TOP SCH (09:28)
[2018-10-09] MEDS: ENOXAPARIN 30MG/0.3ML SYR SUBCUT SCH ×2 (09:28→22:48)
[2018-10-09] MEDS: ACETAMINOPHEN 325MG TABLET PO PRN ×2 (10:29→21:39)
[2018-10-09] MEDS ORDERED: POTASSIUM CHLORIDE 20MEQ TABLET SR PO SCH (11:45)
[2018-10-09] MEDS ORDERED: THROAT LOZENGES-BENZOCAINE/MENTH/CETYLPYRD CL LOZENGES MM PRN (12:00)
[2018-10-09] MEDS: LEVOFLOXACIN 750MG PREMIX 150 ML IV SCH (12:21)
[2018-10-09] MEDS: AMLODIPINE 5MG TABLET PO SCH (12:21)
[2018-10-09] MEDS: LORAZEPAM 2MG/ML CPJ IV PRN (22:08)
[2018-10-10] VITALS (37 sets, daily range): BP systolic 120–164; BP diastolic 63–104
[2018-10-10] MEDS: INSULIN LISPRO 100 UNITS/ML SUBCUT SCH ×4 (00:25→18:24)
[2018-10-10] MEDS: BLOOD SUGAR DIAGNOSTIC STRIP TEST SCH ×4 (00:26→18:27)
[2018-10-10] MEDS: IPRATROPIUM/ALBUTEROL 0.5-3(2.5)MG/3ML NEB HHN SCH ×6 (03:58→20:03)
[2018-10-10 05:37] LABS: BASOPHILS % 0.5 % (0.0-2.0); EOSINOPHILS % 3.4 % (0.0-5.0); HEMATOCRIT. 34.9 % (42.0-52.0); HEMOGLOBIN. 11.8 g/dL (14.0-18.0); LYMPHOCYTES % 20.4 % (20.0-50.0); MEAN CORPUSCULAR HEMOGLOBIN 27.8 pg (28.0-32.0); MEAN CORPUSCULAR VOLUME 82.1 fL (80.0-94.0); MEAN PLATELET VOLUME 8.6 fl (7.4-10.4); MONOCYTES % 10.6 % (2.0-8.0); NEUTROPHILS % 65.1 % (40.0-76.0); PLATELET 183 x1000/uL (130-400); RED BLOOD CELL COUNT 4.25 mill/uL (4.7-6.1); RED CELL DISTRIBUTION WIDTH 15.2 % (11.6-14.6)
[2018-10-10 06:11] LABS: CHLORIDE 100 mEq/L (98-107)
[2018-10-10] MEDS: FUROSEMIDE 40MG/4ML VIAL IV SCH (09:06)
[2018-10-10] MEDS: PANTOPRAZOLE SODIUM 40 MG/VIAL IV SCH (09:06)
[2018-10-10] MEDS: AMLODIPINE 5MG TABLET PO SCH (09:07)
[2018-10-10] MEDS: ENOXAPARIN 30MG/0.3ML SYR SUBCUT SCH ×3 (09:07→20:30)
[2018-10-10] MEDS: MUPIROCIN 2% OINT 22GM TOP SCH (09:10)
[2018-10-10] MEDS ORDERED: POTASSIUM CHLORIDE 20MEQ TABLET SR PO SCH (10:30)
[2018-10-10] MEDS ORDERED: MAGNESIUM 2 G PREMIX 50 ML IV SCH (11:30)
[2018-10-10] MEDS: LEVOFLOXACIN 750MG PREMIX 150 ML IV SCH (11:34)
[2018-10-10] MEDS: VANCOMYCIN 1,750 MG in DEXT 5% WATER 500 ML IV SCH (11:34)
[2018-10-11] VITALS (25 sets, daily range): BP systolic 94–144; BP diastolic 55–95
[2018-10-11] MEDS: INSULIN LISPRO 100 UNITS/ML SUBCUT SCH ×4 (00:11→17:43)
[2018-10-11] MEDS: BLOOD SUGAR DIAGNOSTIC STRIP TEST SCH ×4 (00:11→16:27)
[2018-10-11] MEDS: IPRATROPIUM/ALBUTEROL 0.5-3(2.5)MG/3ML NEB HHN SCH ×4 (00:16→21:08)
[2018-10-11] MEDS: VANCOMYCIN 1,750 MG in DEXT 5% WATER 500 ML IV SCH (05:35)
[2018-10-11 06:40] LABS: BASOPHILS % 0.4 % (0.0-2.0); EOSINOPHILS % 4.6 % (0.0-5.0); HEMATOCRIT. 34.3 % (42.0-52.0); HEMOGLOBIN. 11.7 g/dL (14.0-18.0); LYMPHOCYTES % 19.8 % (20.0-50.0); MEAN CORPUSCULAR HEMOGLOBIN 27.9 pg (28.0-32.0); MEAN CORPUSCULAR VOLUME 81.8 fL (80.0-94.0); MEAN PLATELET VOLUME 8.9 fl (7.4-10.4); MONOCYTES % 12.1 % (2.0-8.0); NEUTROPHILS % 63.1 % (40.0-76.0); PLATELET 199 x1000/uL (130-400); RED BLOOD CELL COUNT 4.19 mill/uL (4.7-6.1); RED CELL DISTRIBUTION WIDTH 14.9 % (11.6-14.6)
[2018-10-11 07:52] LABS: CHLORIDE 100 mEq/L (98-107)
[2018-10-11] MEDS: PANTOPRAZOLE SODIUM 40 MG/VIAL IV SCH (08:33)
[2018-10-11] MEDS: FUROSEMIDE 40MG/4ML VIAL IV SCH (08:33)
[2018-10-11] MEDS: MUPIROCIN 2% OINT 22GM TOP SCH (08:42)
[2018-10-11] MEDS: ENOXAPARIN 30MG/0.3ML SYR SUBCUT SCH ×2 (09:00→20:58)
[2018-10-11] MEDS ORDERED: NITROGLYCERIN 50MCG/ML 10ML VIAL (CATH LAB) IV ONE (09:58)
[2018-10-11] MEDS ORDERED: HEPARIN SODIUM 1,000 UNIT/1ML VIAL IV ONE (09:58)
[2018-10-11] MEDS ORDERED: NICARDIPINE 100MCG/ML 10ML VIAL (CATH LAB) IV ONE (09:58)
[2018-10-11] MEDS: SODIUM CHLORIDE 0.45% 1,000 ML IV SCH ×2 (10:18→23:12)
[2018-10-11] MEDS ORDERED: LEVOFLOXACIN 250MG TABLET PO SCH (11:00)
[2018-10-11] MEDS: AMLODIPINE 5MG TABLET PO SCH (11:01)
[2018-10-11] MEDS ORDERED: MIDAZOLAM HCL 2 MG/2 ML VIAL ONE (13:27)
[2018-10-11] MEDS ORDERED: FENTANYL CITRATE/PF 50MCG/ML 2ML VIAL ONE (13:27)
[2018-10-11] MEDS ORDERED: IODIXANOL 320MG/ML 100 ML BOTTLE IV ONE ×2 (13:28→15:11)
[2018-10-11] MEDS ORDERED: LIDOCAINE HCL 1% 20ML VIAL (Pyxis) INJ ONE ×2 (13:28→14:25)
[2018-10-11] MEDS ORDERED: IOHEXOL-300 100 ML BOTTLE ONE (14:45)
[2018-10-11] MEDS ORDERED: CLOPIDOGREL 75MG TABLET ONE (14:58)
[2018-10-11] MEDS ORDERED: ASPIRIN 325MG TABLET ONE (14:59)
[2018-10-11] MEDS ORDERED: ONDANSETRON HCL 4MG/2ML INJ IV PRN (15:45)
[2018-10-11] MEDS ORDERED: ATROPINE SULFATE 1MG/10ML SYR IV PRN (15:45)
[2018-10-11] MEDS ORDERED: ACETAMINOPHEN 325MG TABLET PO PRN (15:45)
[2018-10-11] MEDS: LISINOPRIL 40MG TABLET PO SCH (17:45)
[2018-10-11] MEDS: DOCUSATE SODIUM 100MG CAPSULE PO SCH (19:30)
[2018-10-11] MEDS ORDERED: LACTULOSE 20G/30ML UDC PO PRN (19:30)
[2018-10-11] MEDS ORDERED: MAGNESIUM 1 G PREMIX 100 ML IV NR (21:00)
[2018-10-12] VITALS (14 sets, daily range): BP systolic 106–139; BP diastolic 48–75
[2018-10-12] MEDS: IPRATROPIUM/ALBUTEROL 0.5-3(2.5)MG/3ML NEB HHN SCH ×3 (00:31→08:08)
[2018-10-12] MEDS: VANCOMYCIN 1,750 MG in DEXT 5% WATER 500 ML IV SCH (00:38)
[2018-10-12] MEDS: BLOOD SUGAR DIAGNOSTIC STRIP TEST SCH ×4 (00:43→17:05)
[2018-10-12] MEDS: INSULIN LISPRO 100 UNITS/ML SUBCUT SCH ×4 (00:53→17:05)
[2018-10-12 06:17] LABS: CHLORIDE 98 mEq/L (98-107)
[2018-10-12 06:21] LABS: BASOPHILS % 0.5 % (0.0-2.0); EOSINOPHILS % 4.2 % (0.0-5.0); HEMATOCRIT. 34.3 % (42.0-52.0); HEMOGLOBIN. 11.8 g/dL (14.0-18.0); LYMPHOCYTES % 17.9 % (20.0-50.0); MEAN CORPUSCULAR HEMOGLOBIN 27.8 pg (28.0-32.0); MEAN CORPUSCULAR VOLUME 81.3 fL (80.0-94.0); MEAN PLATELET VOLUME 8.7 fl (7.4-10.4); MONOCYTES % 13.3 % (2.0-8.0); NEUTROPHILS % 64.1 % (40.0-76.0); PLATELET 184 x1000/uL (130-400); RED BLOOD CELL COUNT 4.23 mill/uL (4.7-6.1); RED CELL DISTRIBUTION WIDTH 15.4 % (11.6-14.6)
[2018-10-12] MEDS: FUROSEMIDE 40MG/4ML VIAL IV SCH (08:09)
[2018-10-12] MEDS: DOCUSATE SODIUM 100MG CAPSULE PO SCH ×2 (08:09→17:03)
[2018-10-12] MEDS: AMLODIPINE 5MG TABLET PO SCH (08:10)
[2018-10-12] MEDS: MUPIROCIN 2% OINT 22GM TOP SCH (08:10)
[2018-10-12] MEDS ORDERED: FAMOTIDINE 20MG/2ML VIAL IV SCH (09:00)
[2018-10-12] MEDS ORDERED: ASPIRIN 325MG TABLET PO SCH (09:00)
[2018-10-12] MEDS ORDERED: POLYETHYLENE GLYCOL 3350 (17GM) 1 DOSE PACK PO SCH (09:00)
[2018-10-12] MEDS: ENOXAPARIN 30MG/0.3ML SYR SUBCUT SCH (09:00)
[2018-10-12] MEDS ORDERED: CLOPIDOGREL 75MG TABLET PO SCH (09:00)
[2018-10-12] MEDS ORDERED: POTASSIUM CHLORIDE 20MEQ TABLET SR PO NR (10:00)
[2018-10-12] MEDS: LISINOPRIL 40MG TABLET PO SCH (17:04)
[2018-10-12] MEDS ORDERED: VANCOMYCIN 1500MG in DEXTROSE 5% WATER 250ML IV SCH (19:00)
== END 2018-10-12 20:50 | disposition home health service (06) | DRG 853 ==
LOC: ER 03:13 → EDBEDREQSVC 04:26 → CVICU 04:47 → EDBEDREQTM 04:50 → EDBEDREQ 04:50 → ENRESERV 07:35 → 3WST 10-10 21:40
PROVIDERS: ADMIT Hospitalist; ATTEND Hospitalist
PROC: 5A1945Z Respiratory Ventilation, 24-96 Consecutive Hours (ICD-10-PCS; principal; 2018-10-06)
PROC: 0BH17EZ Insertion of Endotracheal Airway into Trachea, Via Natural or Artificial Opening (ICD-10-PCS; 2018-10-06)
PROC: 02HV33Z Insertion of Infusion Device into Superior Vena Cava, Percutaneous Approach (ICD-10-PCS; 2018-10-06)
PROC: B548ZZA Ultrasonography of Superior Vena Cava, Guidance (ICD-10-PCS; 2018-10-06)
PROC: 027135Z Dilation of Coronary Artery, Two Arteries with Two Drug-eluting Intraluminal Devices, Percutaneous Approach (ICD-10-PCS; 2018-10-11)
PROC: 4A023N8 Measurement of Cardiac Sampling and Pressure, Bilateral, Percutaneous Approach (ICD-10-PCS; 2018-10-11)
PROC: B211YZZ Fluoroscopy of Multiple Coronary Arteries using Other Contrast (ICD-10-PCS; 2018-10-11)
PROC: 0JBQ0ZZ Excision of Right Foot Subcutaneous Tissue and Fascia, Open Approach (ICD-10-PCS; 2018-10-11)
PROC: B2151ZZ Fluoroscopy of Left Heart using Low Osmolar Contrast (ICD-10-PCS; 2018-10-11)
PROC: B215YZZ Fluoroscopy of Left Heart using Other Contrast (ICD-10-PCS; 2018-10-11)
DX: A41.9 Sepsis, unspecified organism (principal); J96.01 Acute respiratory failure with hypoxia; J18.9 Pneumonia, unspecified organism; E43 Unspecified severe protein-calorie malnutrition; N00.9 Acute nephritic syndrome with unspecified morphologic changes; I50.41 Acute combined systolic (congestive) and diastolic (congestive) heart failure; I21.4 Non-ST elevation (NSTEMI) myocardial infarction; N17.0 Acute kidney failure with tubular necrosis; I13.0 Hypertensive heart and chronic kidney disease with heart failure and stage 1 through stage 4 chronic kidney disease, or unspecified chronic kidney disease; M48.54XA Collapsed vertebra, not elsewhere classified, thoracic region, initial encounter for fracture; M86.671 Other chronic osteomyelitis, right ankle and foot; E87.2 Acidosis; T81.49XA Infection following a procedure, other surgical site, initial encounter; N18.9 Chronic kidney disease, unspecified; E78.5 Hyperlipidemia, unspecified; E11.69 Type 2 diabetes mellitus with other specified complication; E11.22 Type 2 diabetes mellitus with diabetic chronic kidney disease; E11.40 Type 2 diabetes mellitus with diabetic neuropathy, unspecified; B95.62 Methicillin resistant Staphylococcus aureus infection as the cause of diseases classified elsewhere; D64.9 Anemia, unspecified; E11.51 Type 2 diabetes mellitus with diabetic peripheral angiopathy without gangrene; E11.65 Type 2 diabetes mellitus with hyperglycemia; E11.621 Type 2 diabetes mellitus with foot ulcer; L97.529 Non-pressure chronic ulcer of other part of left foot with unspecified severity; I45.10 Unspecified right bundle-branch block; I05.0 Rheumatic mitral stenosis; I25.119 Atherosclerotic heart disease of native coronary artery with unspecified angina pectoris; E87.6 Hypokalemia; Z87.891 Personal history of nicotine dependence; Z82.49 Family history of ischemic heart disease and other diseases of the circulatory system; Z91.19 Patient's noncompliance with other medical treatment and regimen; Z88.0 Allergy status to penicillin; Z79.82 Long term (current) use of aspirin; Z79.899 Other long term (current) drug therapy; Z78.1 Physical restraint status; Z68.33 Body mass index [BMI] 33.0-33.9, adult
CPT/HCPCS: 31500; 36415; 36569; 36600; 51702; 71045; 71250; 76937; 78580; 80048; 80061; 80202; 80305; 82375; 82550; 82553; 82805; 82962; 83036; 83605; 83735; 83880; 84478; 84484; 85347; 87070; 87804; 92610; 92928; 92929; 93005; 93306; 93460; 93970; 94003; 94640; 96361; 96365; 96367; 96375; 99291; C1725; C1760; C1769; C1874; C1887; C1893; C9113; J0330; J1644; J1650; J1815; J1940; J1956; J2060; J2250; J2405; J2704; J2930; J3010; J3370; J3475; J3480; J3490; J7030; J7050; J7060; J7611; J7620; Q9967; A4315

== ENCOUNTER 2018-12-17 06:38 | Day surgery (SDC) | payer MEDICARE, MEDICAID ==
[~2018-12-17] VITALS: Ht 193 cm; Wt 112.5 kg
[~2018-12-17 06:38] MED LIST changes: -ASPI-1159 MT; +ASPI-1393 MT; +CLOP75TA33 MT; +ISOS30TA6 MT; +LISI-604 PO; -LISI40TA4 PO; +LORA2TAB2 MT; +NITR0.4T49 SL; -SIMV10TA6 PO; +SIMV20TA6 PO; -SULF-288 PO
[2018-12-17] MEDS ORDERED: BETAMETHASONE ACET/BETAMET 30 MG/5 ML VIAL IM ONE (07:23)
[2018-12-17] MEDS ORDERED: LIDOCAINE HCL 1% 20ML VIAL (Pyxis) INJ ONE (07:23)
[2018-12-17] MEDS ORDERED: BUPIVACAINE HCL/PF 0.5% (5MG/ML) 10ML ONE (07:23)
[2018-12-17] MEDS ORDERED: NORMAL SALINE 0.9% 10 ML SYR ONE (07:23)
[2018-12-17] MEDS ORDERED: DEXAMETHASONE 4MG/ML 1ML VIAL ONE ×2 (07:24→09:19)
[2018-12-17] MEDS ORDERED: BACITRACIN 50,000 UNITS/VIAL ONE (07:24)
[2018-12-17] MEDS ORDERED: LACTATED RINGERS 1,000 ML IV SCH (07:50)
[2018-12-17] MEDS ORDERED: SODIUM CHLORIDE 0.9% 1,000 ML IV SCH (08:10)
[2018-12-17] MEDS ORDERED: VANCOMYCIN HCL 500 MG/VIAL ONE ×2 (08:29→09:30)
[2018-12-17] MEDS ORDERED: GENTAMICIN SULF 40MG/ML 2ML VIAL ONE (08:46)
[2018-12-17] MEDS ORDERED: MIDAZOLAM HCL 2 MG/2 ML VIAL ONE ×2 (09:12→09:35)
[2018-12-17] MEDS ORDERED: FENTANYL CITRATE/PF 50MCG/ML 2ML VIAL ONE ×2 (09:12→09:35)
[2018-12-17] MEDS ORDERED: PROPOFOL 200MG/20ML VIAL IV ONE (09:12)
[2018-12-17] MEDS ORDERED: ONDANSETRON HCL 4MG/2ML INJ ONE (09:19)
[2018-12-17] MEDS ORDERED: MEPERIDINE HCL/PF 25MG/ML CPJ IV PRN (09:45)
[2018-12-17] MEDS ORDERED: ONDANSETRON HCL 4MG/2ML INJ IV PRN (09:45)
[2018-12-17] MEDS ORDERED: HYDROMORPHONE HCL/PF 2MG/ML CPJ IV PRN (09:45)
[2018-12-17] MEDS ORDERED: LABETALOL HCL 5MG/ML VIAL 20ML IV PRN (09:45)
== END 2018-12-17 11:10 | disposition home or self-care (01) ==
LOC: OR 06:38
PROVIDERS: ATTEND Podiatrist Foot & Ankle Surgery
DX: M86.671 Other chronic osteomyelitis, right ankle and foot (principal); I25.10 Atherosclerotic heart disease of native coronary artery without angina pectoris; E78.5 Hyperlipidemia, unspecified; I12.9 Hypertensive chronic kidney disease with stage 1 through stage 4 chronic kidney disease, or unspecified chronic kidney disease; E11.22 Type 2 diabetes mellitus with diabetic chronic kidney disease; N18.9 Chronic kidney disease, unspecified; I05.0 Rheumatic mitral stenosis
CPT/HCPCS: 28820; 82962; 87070; 87075; 87077; 87205; 88304; 88305; 88311; J1100; J2250; J2405; J2704; J3010; J3370; J3490; J0702; J1580

== ENCOUNTER 2019-02-17 08:41 | Day surgery (SDC) | payer MEDICARE, MEDICAID ==
[~2019-02-17 08:41] MED LIST changes: -LORA2TAB2 MT
[2019-02-17] MEDS ORDERED: NICARDIPINE 100MCG/ML 10ML VIAL (CATH LAB) IV ONE (08:53)
[2019-02-17] MEDS ORDERED: HEPARIN SODIUM 1,000 UNIT/1ML VIAL IV ONE (08:53)
[2019-02-17] MEDS ORDERED: NITROGLYCERIN 50MCG/ML 10ML VIAL (CATH LAB) IV ONE (08:53)
[2019-02-17] MEDS ORDERED: SODIUM CHLORIDE 0.45% 1,000 ML IV SCH (10:00)
[2019-02-17] MEDS ORDERED: LIDOCAINE HCL 1% 20ML VIAL (Pyxis) INJ ONE (11:02)
[2019-02-17] MEDS ORDERED: MIDAZOLAM HCL 2 MG/2 ML VIAL ONE (11:02)
[2019-02-17] MEDS ORDERED: FENTANYL CITRATE/PF 50MCG/ML 2ML VIAL ONE (11:02)
[2019-02-17] MEDS ORDERED: IODIXANOL 320MG/ML 100 ML BOTTLE IV ONE (11:02)
[2019-02-17] MEDS ORDERED: TAMS-11 PO (11:07)
[2019-02-17] MEDS ORDERED: LORA2TAB2 PO (11:07)
[2019-02-17] MEDS ORDERED: PROTAMINE SULFATE 10MG/ML VIAL 5ML IV ONE (11:32)
[2019-02-17] MEDS ORDERED: ATROPINE SULFATE 1MG/10ML SYR IV PRN (11:45)
[2019-02-17] MEDS ORDERED: ACETAMINOPHEN 325MG TABLET PO PRN (11:45)
[2019-02-17] MEDS ORDERED: ONDANSETRON HCL 4MG/2ML INJ IV PRN (11:45)
== END 2019-02-17 18:30 | disposition home or self-care (01) ==
LOC: CCL 08:41
PROVIDERS: ATTEND Specialist
DX: I25.118 Atherosclerotic heart disease of native coronary artery with other forms of angina pectoris (principal); I10 Essential (primary) hypertension; E78.5 Hyperlipidemia, unspecified; I25.2 Old myocardial infarction; E11.51 Type 2 diabetes mellitus with diabetic peripheral angiopathy without gangrene; Z79.82 Long term (current) use of aspirin; Z79.899 Other long term (current) drug therapy; Z79.84 Long term (current) use of oral hypoglycemic drugs; Z88.0 Allergy status to penicillin; Z83.3 Family history of diabetes mellitus; Z82.49 Family history of ischemic heart disease and other diseases of the circulatory system
CPT/HCPCS: 82962; 85347; 93454; 93571; 99152; C1760; C1769; C1887; C1893; J1644; J2250; J2720; J3010; J3490; Q9967; G0500

== ENCOUNTER 2019-04-02 07:19 | Inpatient (IN) | payer MEDICARE, MEDICAID ==
[~2019-04-02] VITALS: Ht 193 cm; Wt 114.8 kg
[~2019-04-02 07:19] MED LIST changes: +LORA2TAB2 PO; +TAMS-11 PO
[2019-04-02] MEDS ORDERED: ASPIRIN 81MG TABLET PO ONE (09:30)
[2019-04-02 09:42] LABS: CHLORIDE 104 mEq/L (98-107)
[2019-04-02 09:45] LABS: BASOPHILS % 0.5 % (0.0-2.0); EOSINOPHILS % 3.3 % (0.0-5.0); HEMATOCRIT. 39.4 % (42.0-52.0); HEMOGLOBIN. 13.4 g/dL (14.0-18.0); MEAN CORPUSCULAR HEMOGLOBIN 28.6 pg (28.0-32.0); MEAN CORPUSCULAR VOLUME 84.2 fL (80.0-94.0); MONOCYTES % 9.2 % (2.0-8.0); PLATELET 149 x1000/uL (130-400); RED BLOOD CELL COUNT 4.68 mill/uL (4.7-6.1); RED CELL DISTRIBUTION WIDTH 13.8 % (11.6-14.6)
[2019-04-02 10:03] LABS: D-DIMER 1.06 mg/L FEU (<0.50); INR 1.1; PARTIAL THROMBOPLASTIN TIME 27.6 sec (23.4-31.0); PROTHROMBIN TIME 10.8 sec (9.6-11.0)
[2019-04-02] MEDS ORDERED: IOHEXOL-350 100 ML BOTTLE ONE (11:42)
[2019-04-02 14:45] VITALS: BP 164/80
[2019-04-02 14:55] VITALS: BP 164/80
[2019-04-02 16:00] VITALS: BP 168/82
[2019-04-02] MEDS ORDERED: GUAIFENESIN 200MG/10ML SUGAR FREE UDC PO PRN ×2 (17:45)
[2019-04-02] MEDS ORDERED: MORPHINE SULFATE 2 MG/ML CPJ (NOT FOR IM USE) IV PRN ×2 (17:45→18:34)
[2019-04-02] MEDS ORDERED: DIPHENHYDRAMINE 50MG/ML VIAL IV PRN ×2 (17:45)
[2019-04-02] MEDS ORDERED: HYDROCODONE/ACETAMINOPHEN 5/325MG TABLET PO PRN (17:45)
[2019-04-02] MEDS ORDERED: IPRATROPIUM/ALBUTEROL 0.5-3(2.5)MG/3ML NEB NEB PRN ×2 (17:45)
[2019-04-02] MEDS ORDERED: CLONIDINE 0.1MG TABLET PO PRN ×2 (17:45)
[2019-04-02] MEDS ORDERED: DOCUSATE SODIUM 100MG CAPSULE PO PRN ×2 (17:45)
[2019-04-02] MEDS ORDERED: ENOXAPARIN 40MG/0.4ML SYR SUBCUT SCH (17:45)
[2019-04-02] MEDS ORDERED: ONDANSETRON HCL 4MG/2ML INJ IV PRN ×2 (17:45)
[2019-04-02] MEDS ORDERED: LORAZEPAM 2MG/ML CPJ IV PRN ×2 (17:45)
[2019-04-02] MEDS ORDERED: MAGNESIUM/ALUMINUM HYDROXIDE/SIMETHICONE 30ML UDC PO PRN ×2 (17:45)
[2019-04-02] MEDS ORDERED: ACETAMINOPHEN 325MG TABLET PO PRN ×2 (17:45)
[2019-04-02] MEDS ORDERED: NA PHOS,M-B/NA PHOS,DI-BA ENEMA 118ML PR PRN ×2 (17:45)
[2019-04-02] MEDS ORDERED: DEXTROSE 50% WATER 50ML SYRINGE IV PRN (19:00)
[2019-04-02 20:00] VITALS: BP_SYST 123; BP_SYST 143; BP_DIAS 61; BP_DIAS 82
[2019-04-02] MEDS: INSULIN LISPRO 100 UNITS/ML SUBCUT SCH (21:00)
[2019-04-02] MEDS: BLOOD SUGAR DIAGNOSTIC STRIP TEST SCH (21:03)
[2019-04-02] MEDS: HYDROCODONE/ACETAMINOPHEN 5/325MG TABLET PO PRN (21:35)
[2019-04-02] MEDS: ENOXAPARIN 30MG/0.3ML SYR SUBCUT SCH (21:38)
[2019-04-03] VITALS: BP 133/81
[2019-04-03 01:01] LABS: CHLORIDE 105 mEq/L (98-107)
[2019-04-03 04:00] VITALS: BP 148/91
[2019-04-03] MEDS: HYDROCODONE/ACETAMINOPHEN 5/325MG TABLET PO PRN (04:34)
[2019-04-03] MEDS: BLOOD SUGAR DIAGNOSTIC STRIP TEST SCH ×4 (06:34→21:26)
[2019-04-03] MEDS: INSULIN LISPRO 100 UNITS/ML SUBCUT SCH ×4 (06:34→21:00)
[2019-04-03 07:52] LABS: BASOPHILS % 0.5 % (0.0-2.0); EOSINOPHILS % 3.7 % (0.0-5.0); HEMATOCRIT. 39.8 % (42.0-52.0); HEMOGLOBIN. 13.7 g/dL (14.0-18.0); LYMPHOCYTES % 29.2 % (20.0-50.0); MEAN CORPUSCULAR HEMOGLOBIN 28.8 pg (28.0-32.0); MEAN CORPUSCULAR VOLUME 83.5 fL (80.0-94.0); MEAN PLATELET VOLUME 8.6 fl (7.4-10.4); MONOCYTES % 9.4 % (2.0-8.0); NEUTROPHILS % 57.2 % (40.0-76.0); PLATELET 147 x1000/uL (130-400); RED BLOOD CELL COUNT 4.76 mill/uL (4.7-6.1); RED CELL DISTRIBUTION WIDTH 14.2 % (11.6-14.6)
[2019-04-03 08:00] VITALS: BP 139/78
[2019-04-03 08:00] LABS: CHLORIDE 103 mEq/L (98-107)
[2019-04-03 08:12] LABS: LDL CHOLESTEROL 59 mg/dL (5-100)
[2019-04-03 08:13] LABS: HDL CHOLESTEROL 42 mg/dL (40-59)
[2019-04-03] MEDS: ENOXAPARIN 30MG/0.3ML SYR SUBCUT SCH ×2 (08:56→21:50)
[2019-04-03] MEDS: ASPIRIN 81MG EC TABLET PO SCH (08:56)
[2019-04-03] MEDS ORDERED: ASPIRIN 81MG EC TABLET PO SCH (09:00)
[2019-04-03 10:55] LABS: T4 FREE 0.97 ng/dL (0.76-1.46)
[2019-04-03 12:00] VITALS: BP 137/85
[2019-04-03] MEDS ORDERED: REGADENOSON 0.4 MG/5 ML IV NR (12:30)
[2019-04-03] MEDS ORDERED: ZOLPIDEM TARTRATE 5MG TABLET PO PRN (12:45)
[2019-04-03] MEDS: CLOPIDOGREL 75MG TABLET PO SCH (14:06)
[2019-04-03] MEDS: NITROGLYCERIN OINT 1GM/INCH UDPKT TD SCH ×2 (14:06→21:50)
[2019-04-03 20:00] VITALS: BP 111/77
[2019-04-03] MEDS ORDERED: ATORVASTATIN CALCIUM 10MG TABLET PO SCH (21:00)
[2019-04-03] MEDS: METOPROLOL TARTRATE 25MG TABLET PO SCH (21:50)
[2019-04-04] VITALS: BP 138/82
[2019-04-04 04:00] VITALS: BP 106/60
[2019-04-04] MEDS: INSULIN LISPRO 100 UNITS/ML SUBCUT SCH ×3 (06:27→17:15)
[2019-04-04] MEDS: BLOOD SUGAR DIAGNOSTIC STRIP TEST SCH ×4 (06:27→16:45)
[2019-04-04] MEDS: NITROGLYCERIN OINT 1GM/INCH UDPKT TD SCH (06:32)
[2019-04-04 06:50] LABS: BASOPHILS % 0.4 % (0.0-2.0); EOSINOPHILS % 4.6 % (0.0-5.0); HEMATOCRIT. 40.7 % (42.0-52.0); LYMPHOCYTES % 27.1 % (20.0-50.0); MEAN CORPUSCULAR HEMOGLOBIN 29.1 pg (28.0-32.0); MEAN CORPUSCULAR VOLUME 84.8 fL (80.0-94.0); MEAN PLATELET VOLUME 8.6 fl (7.4-10.4); MONOCYTES % 10.1 % (2.0-8.0); NEUTROPHILS % 57.8 % (40.0-76.0); PLATELET 145 x1000/uL (130-400); RED BLOOD CELL COUNT 4.81 mill/uL (4.7-6.1); RED CELL DISTRIBUTION WIDTH 14.1 % (11.6-14.6)
[2019-04-04 07:49] LABS: CHLORIDE 104 mEq/L (98-107)
[2019-04-04 08:00] VITALS: BP 155/81
[2019-04-04] MEDS ORDERED: LISINOPRIL 2.5MG TABLET PO SCH (09:00)
[2019-04-04] MEDS: ASPIRIN 81MG EC TABLET PO SCH (09:00)
[2019-04-04] MEDS: METOPROLOL TARTRATE 25MG TABLET PO SCH (09:00)
[2019-04-04] MEDS ORDERED: LISINOPRIL 10MG TABLET PO SCH (09:00)
[2019-04-04] MEDS ORDERED: TAMSULOSIN HCL 0.4MG SR CAPSULE PO SCH (09:00)
[2019-04-04] MEDS: CLOPIDOGREL 75MG TABLET PO SCH (09:00)
[2019-04-04] MEDS: ENOXAPARIN 30MG/0.3ML SYR SUBCUT SCH (09:42)
[2019-04-04] MEDS ORDERED: REGADENOSON 0.4 MG/5 ML IV ONE (10:34)
[2019-04-04 12:00] VITALS: BP 141/86
[2019-04-04 16:00] VITALS: BP 145/78
[2019-04-04 16:32] VITALS: BP 145/78
[2019-04-04] MEDS ORDERED: NITROGLYCERIN OINT 1GM/INCH UDPKT TD SCH (21:00)
== END 2019-04-04 17:30 | disposition home or self-care (01) | DRG 392 ==
LOC: ER 07:19 → 5WST 12:25 → ENRESERV 12:52
PROVIDERS: ADMIT Internal Medicine; ATTEND Internal Medicine
DX: K21.9 Gastro-esophageal reflux disease without esophagitis (principal); I11.0 Hypertensive heart disease with heart failure; I25.119 Atherosclerotic heart disease of native coronary artery with unspecified angina pectoris; E11.9 Type 2 diabetes mellitus without complications; I50.9 Heart failure, unspecified; D64.9 Anemia, unspecified; E78.5 Hyperlipidemia, unspecified; Z87.891 Personal history of nicotine dependence; N40.0 Benign prostatic hyperplasia without lower urinary tract symptoms; Z95.5 Presence of coronary angioplasty implant and graft; E78.00 Pure hypercholesterolemia, unspecified; I25.10 Atherosclerotic heart disease of native coronary artery without angina pectoris; Z88.0 Allergy status to penicillin; Z82.49 Family history of ischemic heart disease and other diseases of the circulatory system; Z79.84 Long term (current) use of oral hypoglycemic drugs
CPT/HCPCS: 36415; 71045; 71275; 78452; 80048; 80061; 82962; 83036; 83880; 84439; 84443; 84484; 85379; 93005; 93017; 93306; 99285; A9500; J1650; J2785; Q9967

== ENCOUNTER 2021-07-25 02:41 | Inpatient (IN) | payer MEDICARE, MEDICAID ==
[~2021-07-25] VITALS: Ht 193 cm; Wt 117.0 kg
[~2021-07-25 02:41] MED LIST changes: -ASPI-1393 MT; +ASPI-1497 MT; -ISOS30TA6 MT; +ISOS30TA91 MT; -LISI-604 PO; +LISI20TA31 PO; +SIMV-43 PO; -SIMV20TA6 PO
[2021-07-25] MEDS ORDERED: NITROGLYCERIN OINT 1GM/INCH UDPKT TD ONE (03:15)
[2021-07-25] MEDS ORDERED: NITROGLYCERIN 0.4MG TABLET SL SL PRN ×2 (03:15→07:15)
[2021-07-25] MEDS ORDERED: ASPIRIN 81MG TABLET PO ONE (03:15)
[2021-07-25 03:53] LABS: BASOPHILS % 0.4 % (0.0-2.0); EOSINOPHILS % 3.7 % (0.0-5.0); HEMATOCRIT. 39.2 % (42.0-52.0); HEMOGLOBIN. 13.1 g/dL (14.0-18.0); LYMPHOCYTES % 13.7 % (20.0-50.0); MEAN CORPUSCULAR HEMOGLOBIN 28.1 pg (28.0-32.0); MEAN CORPUSCULAR VOLUME 83.9 fL (80.0-94.0); MEAN PLATELET VOLUME 9.2 fl (7.4-10.4); MONOCYTES % 7.8 % (2.0-8.0); NEUTROPHILS % 74.4 % (40.0-76.0); PLATELET 155 x1000/uL (130-400); RED BLOOD CELL COUNT 4.68 mill/uL (4.7-6.1); RED CELL DISTRIBUTION WIDTH 14.7 % (11.6-14.6)
[2021-07-25 03:59] LABS: CHLORIDE 105 mEq/L (98-107)
[2021-07-25 04:05] LABS: ETHANOL BLOOD < 10 mg/dL
[2021-07-25 05:33] LABS: *AMPHETAMINES SCREEN URINE NEGATIVE (NEGATIVE); *BARBITURATES SCREEN URINE NEGATIVE (NEGATIVE); *BENZODIAZEPINES SCREEN URINE NEGATIVE (NEGATIVE); *COCAINE SCREEN URINE NEGATIVE (NEGATIVE); METHADONE URINE SCREEN NEGATIVE (NEGATIVE)
[2021-07-25 05:34] LABS: CANNABINOID URINE SCREEN NEGATIVE (NEGATIVE); OPIATES URINE SCREEN NEGATIVE (NEGATIVE); PHENCYCLIDINE URINE SCREEN NEGATIVE (NEGATIVE)
[2021-07-25] MEDS ORDERED: CLONIDINE 0.1MG TABLET PO PRN (07:15)
[2021-07-25] MEDS ORDERED: ONDANSETRON HCL 4MG/2ML INJ IV PRN (07:15)
[2021-07-25] MEDS ORDERED: NITROGLYCERIN OINT 1GM/INCH UDPKT TD SCH (07:15)
[2021-07-25] MEDS ORDERED: IPRATROPIUM/ALBUTEROL 0.5-3(2.5)MG/3ML NEB NEB PRN (07:15)
[2021-07-25] MEDS ORDERED: MAGNESIUM/ALUMINUM HYDROXIDE/SIMETHICONE 30ML UDC PO PRN (07:15)
[2021-07-25] MEDS ORDERED: GUAIFENESIN 200MG/10ML SUGAR FREE UDC PO PRN (07:15)
[2021-07-25] MEDS ORDERED: DOCUSATE SODIUM 100MG CAPSULE PO PRN (07:15)
[2021-07-25] MEDS ORDERED: ENOXAPARIN 40MG/0.4ML SYR SUBCUT SCH (07:15)
[2021-07-25] MEDS ORDERED: ACETAMINOPHEN 325MG TABLET PO PRN (07:15)
[2021-07-25] MEDS ORDERED: TRAMADOL 50MG TABLET PO PRN (07:15)
[2021-07-25] MEDS ORDERED: NALOXONE HCL 0.4MG/ML VIAL IV PRN (07:30)
[2021-07-25] MEDS: ASPIRIN 81MG EC TABLET PO SCH (09:14)
[2021-07-25] MEDS: METOPROLOL TARTRATE 25MG TABLET PO SCH ×2 (09:14→23:04)
[2021-07-25] MEDS: CLOPIDOGREL 75MG TABLET PO SCH (09:14)
[2021-07-25] MEDS: ENOXAPARIN 30MG/0.3ML SYR SUBCUT SCH ×2 (09:14→23:02)
[2021-07-25] MEDS: LISINOPRIL 20MG TABLET PO SCH ×2 (09:14→23:03)
[2021-07-25] MEDS: FAMOTIDINE 20MG TABLET PO SCH ×2 (09:15→23:04)
[2021-07-25 10:30] VITALS: BP 143/75
[2021-07-25] MEDS ORDERED: AMLODIPINE 5MG TABLET PO NR (11:45)
[2021-07-25 12:00] VITALS: BP 143/75
[2021-07-25] MEDS: ACETAMINOPHEN 325MG TABLET PO PRN ×2 (12:09→17:36)
[2021-07-25 13:04] LABS: HDL CHOLESTEROL 42 mg/dL (40-59)
[2021-07-25 13:05] LABS: LDL CHOLESTEROL 61 mg/dL (5-100)
[2021-07-25] MEDS: NITROGLYCERIN OINT 1GM/INCH UDPKT TD SCH ×2 (15:00→22:00)
[2021-07-25 16:00] VITALS: BP 119/62
[2021-07-25 17:11] LABS: ETHANOL BLOOD < 10 mg/dL
[2021-07-25 17:15] LABS: CREATINE KINASE 154 IU/L (39-308); FOLIC ACID (FOLATE) SERUM 9.9 ng/mL (>5.38); TOTAL IRON BINDING CAPACITY 293 ug/dL (250-450)
[2021-07-25 17:18] LABS: CREATINE KINASE MB FRACTION 4.3 ng/mL (0.5-3.6)
[2021-07-25 20:00] VITALS: BP 155/87
[2021-07-25] MEDS ORDERED: DEXTROSE 50% WATER 50ML SYRINGE IV PRN (20:15)
[2021-07-25] MEDS ORDERED: ZOLPIDEM TARTRATE 5MG TABLET PO PRN (21:00)
[2021-07-25] MEDS: BLOOD SUGAR DIAGNOSTIC STRIP TEST SCH (21:00)
[2021-07-25] MEDS: INSULIN LISPRO 100 UNITS/ML SUBCUT SCH (23:02)
[2021-07-25] MEDS: AMLODIPINE 5MG TABLET PO SCH (23:03)
[2021-07-26] VITALS: BP 155/87
[2021-07-26 01:49] LABS: CREATINE KINASE 124 IU/L (39-308)
[2021-07-26 01:51] LABS: CREATINE KINASE MB FRACTION 3.6 ng/mL (0.5-3.6)
[2021-07-26 04:00] VITALS: BP 151/95
[2021-07-26] MEDS: NITROGLYCERIN OINT 1GM/INCH UDPKT TD SCH ×3 (05:48→22:00)
[2021-07-26] MEDS: BLOOD SUGAR DIAGNOSTIC STRIP TEST SCH ×4 (05:49→20:12)
[2021-07-26] MEDS: INSULIN LISPRO 100 UNITS/ML SUBCUT SCH ×4 (06:24→20:38)
[2021-07-26 06:45] LABS: BASOPHILS % 0.4 % (0.0-2.0); EOSINOPHILS % 5.2 % (0.0-5.0); HEMATOCRIT. 40.3 % (42.0-52.0); HEMOGLOBIN. 13.5 g/dL (14.0-18.0); LYMPHOCYTES % 19.6 % (20.0-50.0); MEAN CORPUSCULAR VOLUME 83.4 fL (80.0-94.0); NEUTROPHILS % 65.8 % (40.0-76.0); PLATELET 159 x1000/uL (130-400); RED BLOOD CELL COUNT 4.83 mill/uL (4.7-6.1); RED CELL DISTRIBUTION WIDTH 14.4 % (11.6-14.6)
[2021-07-26 06:58] LABS: CHLORIDE 99 mEq/L (98-107)
[2021-07-26 07:16] LABS: PHOSPHORUS 3.6 mg/dL (2.5-4.9)
[2021-07-26 08:01] VITALS: BP 125/80
[2021-07-26] MEDS: LISINOPRIL 20MG TABLET PO SCH ×2 (09:29→20:39)
[2021-07-26] MEDS: ASPIRIN 81MG EC TABLET PO SCH (09:30)
[2021-07-26] MEDS: METOPROLOL TARTRATE 25MG TABLET PO SCH ×2 (09:30→20:40)
[2021-07-26] MEDS: ENOXAPARIN 30MG/0.3ML SYR SUBCUT SCH ×2 (09:30→20:39)
[2021-07-26] MEDS: AMLODIPINE 5MG TABLET PO SCH ×2 (09:30→20:40)
[2021-07-26] MEDS: CLOPIDOGREL 75MG TABLET PO SCH (09:30)
[2021-07-26 12:00] VITALS: BP 125/77
[2021-07-26] MEDS: FAMOTIDINE 20MG TABLET PO SCH ×2 (12:46→20:40)
[2021-07-26 16:00] VITALS: BP 128/78
[2021-07-26 20:00] VITALS: BP 124/74
[2021-07-27] VITALS: BP 129/68
[2021-07-27 04:00] VITALS: BP 135/73
[2021-07-27] MEDS: NITROGLYCERIN OINT 1GM/INCH UDPKT TD SCH (05:20)
[2021-07-27] MEDS: BLOOD SUGAR DIAGNOSTIC STRIP TEST SCH ×2 (06:13→11:45)
[2021-07-27] MEDS: INSULIN LISPRO 100 UNITS/ML SUBCUT SCH ×2 (06:19→11:58)
[2021-07-27 08:00] VITALS: BP 126/62
[2021-07-27] MEDS: FAMOTIDINE 20MG TABLET PO SCH (09:34)
[2021-07-27] MEDS: ASPIRIN 81MG EC TABLET PO SCH (09:34)
[2021-07-27] MEDS: CLOPIDOGREL 75MG TABLET PO SCH (09:34)
[2021-07-27] MEDS: LISINOPRIL 20MG TABLET PO SCH (09:34)
[2021-07-27] MEDS: METOPROLOL TARTRATE 25MG TABLET PO SCH (09:34)
[2021-07-27] MEDS: AMLODIPINE 5MG TABLET PO SCH (09:34)
[2021-07-27] MEDS: ENOXAPARIN 30MG/0.3ML SYR SUBCUT SCH (09:35)
[2021-07-27 10:45] VITALS: BP 124/60
== END 2021-07-27 12:15 | disposition home or self-care (01) | DRG 205 ==
LOC: ER 02:41 → 5WST 04:12 → SUPCPDRO 07:12 → ENRESERV 07:16
PROVIDERS: ADMIT Internal Medicine; ATTEND Internal Medicine
DX: M94.0 Chondrocostal junction syndrome [Tietze] (principal); I50.33 Acute on chronic diastolic (congestive) heart failure; I16.1 Hypertensive emergency; I25.110 Atherosclerotic heart disease of native coronary artery with unstable angina pectoris; I11.0 Hypertensive heart disease with heart failure; E11.65 Type 2 diabetes mellitus with hyperglycemia; E66.9 Obesity, unspecified; E78.00 Pure hypercholesterolemia, unspecified; E78.5 Hyperlipidemia, unspecified; N40.0 Benign prostatic hyperplasia without lower urinary tract symptoms; Z20.822 Contact with and (suspected) exposure to COVID-19; E05.90 Thyrotoxicosis, unspecified without thyrotoxic crisis or storm; I34.2 Nonrheumatic mitral (valve) stenosis; Z79.4 Long term (current) use of insulin; Z79.899 Other long term (current) drug therapy; Z95.5 Presence of coronary angioplasty implant and graft; Z88.0 Allergy status to penicillin
CPT/HCPCS: 36415; 71045; 80053; 80061; 80305; 80320; 82550; 82553; 82607; 82746; 82962; 83036; 83540; 83550; 83735; 83880; 84100; 84443; 84484; 85025; 87426; 93005; 93306; 93970; 97162; 99291; J1650; J1815; G0480

== ENCOUNTER → 2021-09-12 | Day surgery (SDC) | payer MEDICARE, MEDICAID ==
[~2021-09-12] MED LIST changes: +ACETAMINOPHEN 325MG TABLET PO PRN; +AMLO5TAB88 PO; +ATROPINE SULFATE 1MG/10ML SYR IV PRN; +FENTANYL CITRATE/PF 50MCG/ML 2ML VIAL ONE; +HEPARIN SODIUM 1,000 UNIT/1ML VIAL IV ONE; +IODIXANOL 320MG/ML 100 ML BOTTLE IV ONE; +LIDOCAINE HCL 1% 30ML VIAL (10MG/ML) ONE; +MIDAZOLAM HCL 2 MG/2 ML VIAL ONE; +NICARDIPINE 100MCG/ML 10ML VIAL (CATH LAB) IV ONE; +NITROGLYCERIN 50MCG/ML 10ML VIAL (CATH LAB) IV ONE; +ONDANSETRON HCL 4MG/2ML INJ IV PRN
== END | disposition home or self-care (01) ==
LOC: CCL 06:51
PROVIDERS: ATTEND Specialist
DX: R07.9 Chest pain, unspecified (principal); I25.10 Atherosclerotic heart disease of native coronary artery without angina pectoris; I12.9 Hypertensive chronic kidney disease with stage 1 through stage 4 chronic kidney disease, or unspecified chronic kidney disease; E11.22 Type 2 diabetes mellitus with diabetic chronic kidney disease; N18.9 Chronic kidney disease, unspecified; N40.0 Benign prostatic hyperplasia without lower urinary tract symptoms; E66.09 Other obesity due to excess calories; E78.5 Hyperlipidemia, unspecified; G47.33 Obstructive sleep apnea (adult) (pediatric); F17.210 Nicotine dependence, cigarettes, uncomplicated; Z79.84 Long term (current) use of oral hypoglycemic drugs; Z79.899 Other long term (current) drug therapy; Z98.890 Other specified postprocedural states; Z95.5 Presence of coronary angioplasty implant and graft; Z88.0 Allergy status to penicillin; Z79.82 Long term (current) use of aspirin; Z82.49 Family history of ischemic heart disease and other diseases of the circulatory system; Z83.3 Family history of diabetes mellitus; Z20.822 Contact with and (suspected) exposure to COVID-19
CPT/HCPCS: 87426; 93458; 99152; C1769; C1887; C1893; J1644; J2250; J3010; J3490; Q9967; G0500

== ENCOUNTER 2024-03-19 15:21 | Emergency (ER) | payer MEDICARE, MEDICAID ==
[~2024-03-19] VITALS: Ht 182.9 cm; Wt 109.0 kg
[~2024-03-19 15:21] MED LIST changes: -ACETAMINOPHEN 325MG TABLET PO PRN; -ATROPINE SULFATE 1MG/10ML SYR IV PRN; -FENTANYL CITRATE/PF 50MCG/ML 2ML VIAL ONE; -HEPARIN SODIUM 1,000 UNIT/1ML VIAL IV ONE; -IODIXANOL 320MG/ML 100 ML BOTTLE IV ONE; -LIDOCAINE HCL 1% 30ML VIAL (10MG/ML) ONE; -MIDAZOLAM HCL 2 MG/2 ML VIAL ONE; -NICARDIPINE 100MCG/ML 10ML VIAL (CATH LAB) IV ONE; -NITROGLYCERIN 50MCG/ML 10ML VIAL (CATH LAB) IV ONE; -ONDANSETRON HCL 4MG/2ML INJ IV PRN
[2024-03-19 15:35] VITALS: O2SAT 97
[2024-03-19] MEDS: LIDOCAINE HCL 1% 20ML VIAL INFIL ONE (16:12)
[2024-03-19 18:30] VITALS: BP 111/58; PULSE 80; RESP 18; TEMP 36.66960; O2SAT 97
== END 2024-03-19 18:29 | disposition home or self-care (01) ==
LOC: ER 15:21
DX: S82.842A Displaced bimalleolar fracture of left lower leg, initial encounter for closed fracture (principal); E11.9 Type 2 diabetes mellitus without complications; I10 Essential (primary) hypertension; Z79.02 Long term (current) use of antithrombotics/antiplatelets; Z79.899 Other long term (current) drug therapy; Z88.0 Allergy status to penicillin; Z79.84 Long term (current) use of oral hypoglycemic drugs; Z79.82 Long term (current) use of aspirin; W18.39XA Other fall on same level, initial encounter; Y93.89 Activity, other specified; Y92.89 Other specified places as the place of occurrence of the external cause; Y99.8 Other external cause status
CPT/HCPCS: 27810; 73610; 99284; J3490

== ENCOUNTER → 2024-05-27 | Day surgery (SDC) | payer MEDICARE, MEDICAID ==
[~2024-05-27] VITALS: Ht 193 cm; Wt 113.4 kg
[~2024-05-27] MED LIST changes: +ACETAMINOPHEN 325MG TABLET PO PRN; +AMLO10TA80 PO; -AMLO5TAB88 PO; +APIX5TAB PO; +ATROPINE SULFATE 1MG/10ML SYR IV PRN; -CLOP75TA33 MT; +FENTANYL CITRATE/PF 50MCG/ML 2ML VIAL ONE; -ISOS30TA91 MT; +LIDOCAINE 2% 6ML GLYDO MM ONE; -LISI20TA31 PO; -LORA2TAB2 PO; +MAGN200T4 PO; -METO25TA6 PO; +MIDAZOLAM HCL 2 MG/2 ML VIAL ONE; +ONDANSETRON HCL 4MG/2ML INJ IV PRN; -SIMV-43 PO; +SITA100T11 PO; +SOTA80TA PO; +SULF1TAB47 MT; -TAMS-11 PO; +TETRACAINE/BENZOCAINE/BUTAMBEN 20 GM SPRAY MM ONE
[2024-05-27] MEDS: SODIUM CHLORIDE 0.45% 500 ML IV ONE (08:20)
== END | disposition home or self-care (01) ==
LOC: CCL 07:18
PROVIDERS: ATTEND Specialist
DX: I48.20 Chronic atrial fibrillation, unspecified (principal); I05.2 Rheumatic mitral stenosis with insufficiency; I25.10 Atherosclerotic heart disease of native coronary artery without angina pectoris; I12.9 Hypertensive chronic kidney disease with stage 1 through stage 4 chronic kidney disease, or unspecified chronic kidney disease; E11.22 Type 2 diabetes mellitus with diabetic chronic kidney disease; N18.9 Chronic kidney disease, unspecified; I49.3 Ventricular premature depolarization; I48.92 Unspecified atrial flutter; I25.2 Old myocardial infarction; E11.51 Type 2 diabetes mellitus with diabetic peripheral angiopathy without gangrene; E66.9 Obesity, unspecified; Z68.30 Body mass index [BMI] 30.0-30.9, adult; Z87.891 Personal history of nicotine dependence; Z79.01 Long term (current) use of anticoagulants; Z79.02 Long term (current) use of antithrombotics/antiplatelets; Z79.82 Long term (current) use of aspirin; Z79.84 Long term (current) use of oral hypoglycemic drugs; Z79.899 Other long term (current) drug therapy; Z88.0 Allergy status to penicillin; Z95.5 Presence of coronary angioplasty implant and graft; Z98.42 Cataract extraction status, left eye; Z98.41 Cataract extraction status, right eye; Z98.890 Other specified postprocedural states
CPT/HCPCS: 93005; 82962; 92960; 93312; J3010; J2250; A4663; 99152; G0500

== ENCOUNTER → 2025-01-06 | Day surgery (SDC) | payer MEDICARE, MEDICAID ==
[~2025-01-06] VITALS: Ht 193 cm; Wt 97.5 kg
[~2025-01-06] MED LIST changes: +ALFU10TA46 PO; -AMLO10TA80 PO; +AMLO2.5T45 PO; +ATROPINE SULFATE 1MG/10ML SYR ONE; +FAMO20TA8 PO; +GABA-529 PO; +HEPARIN 1000 UNITS/ML 10ML ONE; +HYDR-4001 PO; +INDO50CA98 MT; +IODIXANOL 320 MG/ML 150ML BOTTLE IV ONE; -LIDOCAINE 2% 6ML GLYDO MM ONE; +LIDOCAINE HCL 1% 20ML VIAL ONE; +SIMV-46 PO; -TETRACAINE/BENZOCAINE/BUTAMBEN 20 GM SPRAY MM ONE; +TRAM50TA3 MT; +VERAPAMIL HCL 2.5 MG/1 ML 2ML VIAL IV ONE
== END | disposition home or self-care (01) ==
LOC: CCL 07:35
PROVIDERS: ATTEND Specialist
DX: I25.10 Atherosclerotic heart disease of native coronary artery without angina pectoris (principal); R94.39 Abnormal result of other cardiovascular function study; R55 Syncope and collapse; I10 Essential (primary) hypertension; E11.9 Type 2 diabetes mellitus without complications; E78.5 Hyperlipidemia, unspecified; I48.91 Unspecified atrial fibrillation; I73.9 Peripheral vascular disease, unspecified; Z79.82 Long term (current) use of aspirin; Z79.84 Long term (current) use of oral hypoglycemic drugs; Z79.899 Other long term (current) drug therapy; Z98.890 Other specified postprocedural states; Z88.0 Allergy status to penicillin; Z88.8 Allergy status to other drugs, medicaments and biological substances
CPT/HCPCS: 93458; 82962; C1893; C1725; C1769 ×2; J3010; J0461; J1644 ×2; J2003; J2250; J3490; Q9967; C1887; 99152; A4606; G0500